=== PATIENT | female | born 2000 | race Caucasian/White ===

== ENCOUNTER 2021-07-04 19:06 | Observation (INO) ==
[2021-07-04] MEDS ORDERED: ONDANSETRON INJ 2 MG/ML 2 ML VIAL IV STA (19:59)
[2021-07-04] MEDS ORDERED: SODIUM CHLORIDE 0.9% 1000ML 1,000 ML IV ONE ×2 (19:59→21:14)
[2021-07-04 20:50] LABS: Hematocrit (blood only) 40.2 % (37-47); Hemoglobin 14.1 g/dL (12.0-16.0); Immature Granulocytes # (auto) 0.02 K/uL (0.00-0.02); Immature Granulocytes % (auto) 0.2 %; Lymphocytes % (auto) 17.3 %; Mean Corpuscular Hemoglobin 30.5 pg (25-34); Mean Corpuscular Hgb Conc 35.1 g/dL (32-36); Mean Platelet Volume 11.2 fL (7.4-10.4); Monocytes # (auto) 0.94 K/uL (0.11-0.59); Monocytes % (auto) 9.6 %; Neutrophils # (auto) 7.15 K/uL (1.4-6.5); Neutrophils % (auto) 72.9 %; Platelet Count 234 K/uL (130-400); RDW Coefficient of Variation 12.1 % (11.5-14.5); RDW Standard Deviation 38.5 fL (36.4-46.3); Red Blood Count 4.62 M/uL (4.2-5.4); White Blood Count 9.81 K/uL (4.8-10.8)
--- NOTE | 2021-07-04 21:01 | Emergency Department Note ---
History of Present Illness General Chief complaint: Vomiting Stated complaint: NAUSEA AND VOMITING FOR 2 DAYS Time Seen by Provider: 07/04/21 19:19 Source: patient Mode of arrival: ambulatory Limitations: no limitations History of Present Illness This patient is a 20-year-old female who presents to the emergency department for evaluation of vomiting. Patient reports that she has been vomiting for the past 35 hours. The patient states that this started after drinking wine. She does have a history of episodes of vomiting which seems to be triggered by drinking alcohol. She has been evaluated for this in the past and was told that she should have an EGD. Patient states she is unable to keep anything down. She does not have any medications at home to take for nausea. She denies any abdominal pain, urinary symptoms or changes in bowel movements. She denies chance of . She denies marijuana use. Home Medications Medication Instructions Recorded Confirmed Type drospirenone 3 mg-ethinyl 1 tab PO DAILY 07/05/21 07/05/21 History estradiol 0.02 mg tablet (Vestura (28)) fluoxetine 40 mg capsule 40 mg PO DAILY 07/05/21 07/05/21 History Allergies Allergy/AdvReac Type Severity Reaction Status Date / Time Non-steroidal AdvReac Hives Uncoded 07/05/21 01:40 anti-inflammatories Past Med/Surg History Medical History Anxiety Nausea and vomiting in adult Family History Father Diverticulitis Grandfather (Paternal) Pancreatic cancer Other No significant family history Social History Smoking Status: Never smoker Second Hand Exposure: No; Hx Alcohol Use: Yes Alcohol type: wine Hx Substance Use: No Preferred Language: Malagasy Communication Ability: Effective E Mail System Administrator Required: No Beliefs That Will Affect Care: None Current Living Situation: Other Current Living Situation Comment: college student current occupational status: student Feels Safe at Home: Yes Assistive Devices: None Review of Systems A total of 10 systems reviewed and were otherwise negative Physical Exam Vital Signs Vital Signs - 24 hr 07/04/21 19:08 07/04/21 20:00 07/04/21 22:00 Temperature 36.3 C L Temperature Source Temporal Artery Scan Pulse Rate 80 Pulse Rate [Right Finger] 54 L 70 Pulse Rhythm [Right Finger] Regular Regular Pulse Strength [Right Finger] Normal Normal Respiratory Rate 18 16 18 Respiratory Effort / Characteristics Non-Labored Spontaneous Non-Labored Non-Labored Respiratory Depth Normal Normal Normal Respiratory Pattern Regular Regular Blood Pressure 137/82 Blood Pressure [Left Radial Artery] 114/65 113/64 Blood Pressure Mean 100 Blood Pressure Mean [Left Radial Artery] 81 80 Blood Pressure Position [Left Radial Artery] Lying Pulse Oximetry 95 97 97 Oxygen Delivery Method Room Air Room Air Sepsis Recent Fever Within 48 Hours No Sepsis New/Unexplained Change in Mental Status No Sepsis Action Taken by Nursing No Action Required 07/04/21 23:37 07/05/21 00:53 Temperature Temperature Source Pulse Rate Pulse Rate [Right Finger] 65 58 L Pulse Rhythm [Right Finger] Regular Regular Pulse Strength [Right Finger] Normal Normal Respiratory Rate 18 18 Respiratory Effort / Characteristics Non-Labored Spontaneous Non-Labored Spontaneous Respiratory Depth Normal Normal Respiratory Pattern Blood Pressure Blood Pressure [Left Radial Artery] 130/83 120/74 Blood Pressure Mean Blood Pressure Mean [Left Radial Artery] 98 89 Blood Pressure Position [Left Radial Artery] Lying Sitting Pulse Oximetry 98 96 Oxygen Delivery Method Room Air Room Air Sepsis Recent Fever Within 48 Hours Sepsis New/Unexplained Change in Mental Status Sepsis Action Taken by Nursing VITALS: Vitals are noted on the nurse's note and reviewed by myself. GENERAL: This is a 20-year-old female, in no acute distress, well-developed well-nourished. SKIN: The skin was without rashes. EARS: External auditory canals clear, tympanic membranes pearly underwood without erythema or effusion bilaterally. EYES: Pupils equal round and reactive to light and accommodation. NOSE: Patent, turbinates without inflammation or discharge. MOUTH: Mucous membranes moist. Tonsils are not enlarged. Pharynx without erythema or exudate. NECK: Supple without nuchal rigidity. No lymphadenopathy. HEART: Regular rate and rhythm without murmurs gallops or rubs. LUNGS: Clear to auscultation bilaterally without wheezes, rales or rhonchi. No retractions or accessory muscle use. ABDOMEN: Positive bowel sounds x 4. Soft, nontender to palpation. NEURO: Patient was alert and oriented to person place and time. Course Administered Medications Discontinued Medications Al Hydrox/Mg Hydrox/Simethicone (Gi Cocktail Ed Use) 1 dose PO ONE ONE Stop: 07/04/21 22:57 Last Admin: 07/04/21 23:23 Dose: 1 dose Documented by: [id number] Diphenhydramine HCl (Diphenhydramine 50 Mg/Ml Vial) 25 mg IV NOW STA Stop: 07/04/21 23:41 Last Admin: 07/04/21 23:46 Dose: 25 mg Documented by: [id number] Fluoxetine HCl (Fluoxetine Hcl 20 Mg Cap) 40 mg PO DAILY NICOLASA Stop: 08/04/21 09:59 Last Admin: 07/05/21 11:15 Dose: 40 mg Documented by: [id number] Sodium Chloride (Nss 1000ml) 1,000 mls @ 999 mls/hr IV .Q1H1M ONE Stop: 07/04/21 20:59 Last Infusion: 07/04/21 22:17 Dose: 0 mls/hr Documented by: [id number] Admin: 07/04/21 20:34 Dose: 999 mls/hr Documented by: [id number] Sodium Chloride (Nss 1000ml) 1,000 mls @ 999 mls/hr IV .Q1H1M ONE Stop: 07/04/21 22:14 Last Infusion: 07/04/21 23:35 Dose: 0 mls/hr Documented by: [id number] Admin: 07/04/21 22:18 Dose: 999 mls/hr Documented by: [id number] Potassium Chloride (K Faisal / Wtr) 10 meq in 100 mls @ 100 mls/hr IV ONE ONE; Protocol Stop: 07/04/21 22:42 Last Infusion: 07/04/21 23:35 Dose: 0 mls/hr Documented by: [id number] Admin: 07/04/21 22:00 Dose: 100 mls/hr Documented by: [id number] Promethazine HCl (Phenergan) 12.5 mg in 50.5 mls @ 202 mls/hr IV NOW STA Stop: 07/04/21 22:03 Last Infusion: 07/04/21 22:17 Dose: 0 mls/hr Documented by: [id number] Admin: 07/04/21 22:00 Dose: 202 mls/hr Documented by: [id number] Famotidine (Pepcid 20mg Iv Push) 20 mg in 5 mls @ 2.5 mls/min IV NOW STA Stop: 07/04/21 22:57 Last Admin: 07/04/21 23:29 Dose: 2.5 mls/min Documented by: [id number] Lorazepam (Ativan) 1 mg in 2 mls @ 2 mls/min IV NOW STA Stop: 07/05/21 01:21 Last Admin: 07/05/21 01:28 Dose: 2 mls/min Documented by: [id number] Potassium Chloride (K Faisal / Wtr) 10 meq in 100 mls @ 100 mls/hr IV Q1H NICOLASA; Protocol Stop: 07/05/21 05:29 Last Infusion: 07/05/21 06:10 Dose: 0 mls/hr Documented by: [id number] Admin: 07/05/21 04:56 Dose: 100 mls/hr Documented by: [id number] Infusion: 07/05/21 04:56 Dose: 0 mls/hr Documented by: [id number] Admin: 07/05/21 03:32 Dose: 100 mls/hr Documented by: [id number] Potassium Chloride (K Faisal / Wtr) 10 meq in 100 mls @ 100 mls/hr IV Q1H NICOLASA; Protocol Stop: 07/05/21 06:59 Last Infusion: 07/05/21 08:32 Dose: 0 mls/hr Documented by: [id number] Admin: 07/05/21 07:31 Dose: 100 mls/hr Documented by: [id number] Infusion: 07/05/21 07:12 Dose: 100 mls/hr Documented by: [id number] Admin: 07/05/21 06:12 Dose: 100 mls/hr Documented by: [id number] Magnesium Sulfate/Dextrose (Magnesium Sulfate / D5w) 1 gm in 100 mls @ 50 mls/hr IV ONE ONE Stop: 07/05/21 07:29 Last Infusion: 07/05/21 08:30 Dose: 0 mls/hr Documented by: [id number] Admin: 07/05/21 06:11 Dose: 50 mls/hr Documented by: [id number] Potassium Chloride/Sodium Chloride (Normal Saline W/20 Meq Kcl) 20 meq in 1,000 mls @ 120 mls/hr IV .Q8H20M NICOLASA Stop: 07/05/21 23:54 Last Infusion: 07/05/21 16:22 Dose: 0 mls/hr Documented by: [id number] Admin: 07/05/21 08:30 Dose: 120 mls/hr Documented by: [id number] Famotidine 20 mg/ Syringe 5 mls @ 2.5 mls/min IV BID NICOLASA Stop: 08/04/21 09:59 Last Admin: 07/05/21 10:40 Dose: 2.5 mls/min Documented by: [id number] Metoclopramide HCl (Metoclopramide Hcl Inj 5 Mg/Ml 2 Ml Vial) 5 mg IV ONE ONE Stop: 07/04/21 23:41 Last Admin: 07/04/21 23:49 Dose: 5 mg Documented by: [id number] Ondansetron HCl (Ondansetron Inj 2 Mg/Ml 2 Ml Vial) 4 mg IV NOW STA Stop: 07/04/21 20:00 Last Admin: 07/04/21 20:34 Dose: 4 mg Documented by: [id number] Medical Decision Making Differential Diagnosis Gastroenteritis, food borne illness, infections, appendicitis, diverticulitis, inflammatory bowel disease, obstruction, GI bleed, biliary pathology, volvulus, as well as other pathologies. Home Medications Current Medication List: was personally reviewed by me Laboratory Data Attestation: I reviewed the patient's lab results. Result diagrams: 07/04/21 20:37 07/05/21 12:51 Lab Results 07/04/21 07/04/21 07/04/21 Range/Units 20:37 20:37 20:37 WBC 9.81 (4.8-10.8) K/uL RBC 4.62 (4.2-5.4) M/uL Hgb 14.1 (12.0-16.0) g/dL Hct 40.2 (37-47) % MCV 87.0 (80-100) fL MCH 30.5 (25-34) pg MCHC 35.1 (32-36) g/dL RDW Std Deviation 38.5 (36.4-46.3) fL RDW Coeff of Laura 12.1 (11.5-14.5) % Plt Count 234 (130-400) K/uL MPV 11.2 H (7.4-10.4) fL Immature Gran % (Auto) 0.2 % Neut % (Auto) 72.9 % Lymph % (Auto) 17.3 % Shackelford % (Auto) 9.6 % Eos % (Auto) 0.0 % Baso % (Auto) 0.0 % Neut # (Auto) 7.15 H (1.4-6.5) K/uL Lymph # (Auto) 1.70 (1.2-3.4) K/uL Shackelford # (Auto) 0.94 H (0.11-0.59) K/uL Eos # (Auto) 0.00 (0-0.5) K/uL Baso # (Auto) 0.00 (0-0.2) K/uL Immature Gran # (Auto) 0.02 (0.00-0.02) K/uL Sodium 133 L (136-145) mmol/L Potassium 2.8 L (3.5-5.1) mmol/L Chloride 88 L (98-107) mmol/L Carbon Dioxide 29 (21-32) mmol/L Anion Gap 16 H (3-11) BUN 12 (6-23) mg/dl Creatinine 0.68 (0.6-1.2) mg/dl Est Cr Clr Drug Dosing 113.0 ml/min Est GFR ( Amer) 144.9 ml/min Est GFR (Non-Af Amer) 125.0 ml/min BUN/Creatinine Ratio 17.6 (10-20) Glucose 103 H (70-99(Fasting)) mg/dl Calcium 10.8 H (8.5-10.1) mg/dl Magnesium (1.7-2.4) mg/dl Total Bilirubin 0.7 (0.2-1.0) mg/dl AST 15 (13-39) U/L ALT 13 (7-52) U/L Alkaline Phosphatase 33 L (34-104) U/L Total Protein 8.0 (6.0-8.3) gm/dl Albumin 5.0 (3.4-5.0) gm/dl Globulin 3.0 (2.5-4.0) gm/dl Albumin/Globulin Ratio 1.7 (0.9-2) HCG, Qual Negative (Negative) Urine Color Urine Appearance (Clear) Urine pH (4.5-7.5) Ur Specific Capron (1.000-1.030) Urine Protein (Negative) Urine Glucose (UA) (Negative) Urine Ketones (Negative) Urine Blood (Negative) Urine Nitrite (Negative) Urine Bilirubin (Negative) Urine Urobilinogen (Negative) Ur Leukocyte Esterase (Negative) Urine WBC (Auto) (0-5) /hpf Urine RBC (Auto) (0-4) /hpf U Hyaline Cast (Auto) (0-5) /lpf U Epithel Cells (Auto) (0-5) /lpf Urine Bacteria (Auto) (Negative) Urine Opiates Screen (Neg) Ur Methadone, Qual (Neg) Urine Barbiturates (Neg) Ur Phencyclidine (PCP) (Neg) U Amphetamin/Meth Scrn (Neg) MDMA (Ecstasy) Screen (Neg) U Benzodiazepines Scrn (Neg) Ur Cocaine Metabolite (Neg) U Marijuana (THC) Screen (Neg) Ethyl Alcohol mg/dL (<10.0) mg/dl SARS-CoV-2, RNA, NAAT (NEGATIVE) 07/04/21 07/04/21 07/05/21 Range/Units 23:32 23:32 01:25 WBC (4.8-10.8) K/uL RBC (4.2-5.4) M/uL Hgb (12.0-16.0) g/dL Hct (37-47) % MCV (80-100) fL MCH (25-34) pg MCHC (32-36) g/dL RDW Std Deviation (36.4-46.3) fL RDW Coeff of Laura (11.5-14.5) % Plt Count (130-400) K/uL MPV (7.4-10.4) fL Immature Gran % (Auto) % Neut % (Auto) % Lymph % (Auto) % Shackelford % (Auto) % Eos % (Auto) % Baso % (Auto) % Neut # (Auto) (1.4-6.5) K/uL Lymph # (Auto) (1.2-3.4) K/uL Shackelford # (Auto) (0.11-0.59) K/uL Eos # (Auto) (0-0.5) K/uL Baso # (Auto) (0-0.2) K/uL Immature Gran # (Auto) (0.00-0.02) K/uL Sodium (136-145) mmol/L Potassium (3.5-5.1) mmol/L Chloride (98-107) mmol/L Carbon Dioxide (21-32) mmol/L Anion Gap (3-11) BUN (6-23) mg/dl Creatinine (0.6-1.2) mg/dl Est Cr Clr Drug Dosing ml/min Est GFR ( Amer) ml/min Est GFR (Non-Af Amer) ml/min BUN/Creatinine Ratio (10-20) Glucose (70-99(Fasting)) mg/dl Calcium (8.5-10.1) mg/dl Magnesium (1.7-2.4) mg/dl Total Bilirubin (0.2-1.0) mg/dl AST (13-39) U/L ALT (7-52) U/L Alkaline Phosphatase (34-104) U/L Total Protein (6.0-8.3) gm/dl Albumin (3.4-5.0) gm/dl Globulin (2.5-4.0) gm/dl Albumin/Globulin Ratio (0.9-2) HCG, Qual (Negative) Urine Color Yellow Urine Appearance Cloudy A (Clear) Urine pH >= 9.0 H (4.5-7.5) Ur Specific Capron 1.018 (1.000-1.030) Urine Protein 1+ H (Negative) Urine Glucose (UA) Negative (Negative) Urine Ketones 2+ H (Negative) Urine Blood 3+ H (Negative) Urine Nitrite Negative (Negative) Urine Bilirubin Negative (Negative) Urine Urobilinogen Negative (Negative) Ur Leukocyte Esterase 2+ H (Negative) Urine WBC (Auto) >30 H (0-5) /hpf Urine RBC (Auto) 5-10 H (0-4) /hpf U Hyaline Cast (Auto) 1-5 (0-5) /lpf U Epithel Cells (Auto) >30 H (0-5) /lpf Urine Bacteria (Auto) 2+ H (Negative) Urine Opiates Screen Neg (Neg) Ur Methadone, Qual Neg (Neg) Urine Barbiturates Neg (Neg) Ur Phencyclidine (PCP) Neg (Neg) U Amphetamin/Meth Scrn Neg (Neg) MDMA (Ecstasy) Screen Neg (Neg) U Benzodiazepines Scrn Neg (Neg) Ur Cocaine Metabolite Neg (Neg) U Marijuana (THC) Screen Neg (Neg) Ethyl Alcohol mg/dL (<10.0) mg/dl SARS-CoV-2, RNA, NAAT NEGATIVE (NEGATIVE) 07/05/21 07/05/21 Range/Units 03:18 05:54 WBC (4.8-10.8) K/uL RBC (4.2-5.4) M/uL Hgb (12.0-16.0) g/dL Hct (37-47) % MCV (80-100) fL MCH (25-34) pg MCHC (32-36) g/dL RDW Std Deviation (36.4-46.3) fL RDW Coeff of Laura (11.5-14.5) % Plt Count (130-400) K/uL MPV (7.4-10.4) fL Immature Gran % (Auto) % Neut % (Auto) % Lymph % (Auto) % Shackelford % (Auto) % Eos % (Auto) % Baso % (Auto) % Neut # (Auto) (1.4-6.5) K/uL Lymph # (Auto) (1.2-3.4) K/uL Shackelford # (Auto) (0.11-0.59) K/uL Eos # (Auto) (0-0.5) K/uL Baso # (Auto) (0-0.2) K/uL Immature Gran # (Auto) (0.00-0.02) K/uL Sodium 130 L (136-145) mmol/L Potassium 3.5 D (3.5-5.1) mmol/L Chloride 102 (98-107) mmol/L Carbon Dioxide 27 (21-32) mmol/L Anion Gap 1 L (3-11) BUN 9 (6-23) mg/dl Creatinine 0.60 (0.6-1.2) mg/dl Est Cr Clr Drug Dosing 128.1 ml/min Est GFR ( Amer) > 150.0 ml/min Est GFR (Non-Af Amer) 130.3 ml/min BUN/Creatinine Ratio 15.0 (10-20) Glucose 100 H (70-99(Fasting)) mg/dl Calcium 8.2 L D (8.5-10.1) mg/dl Magnesium 1.8 (1.7-2.4) mg/dl Total Bilirubin (0.2-1.0) mg/dl AST (13-39) U/L ALT (7-52) U/L Alkaline Phosphatase (34-104) U/L Total Protein (6.0-8.3) gm/dl Albumin (3.4-5.0) gm/dl Globulin (2.5-4.0) gm/dl Albumin/Globulin Ratio (0.9-2) HCG, Qual (Negative) Urine Color Urine Appearance (Clear) Urine pH (4.5-7.5) Ur Specific Capron (1.000-1.030) Urine Protein (Negative) Urine Glucose (UA) (Negative) Urine Ketones (Negative) Urine Blood (Negative) Urine Nitrite (Negative) Urine Bilirubin (Negative) Urine Urobilinogen (Negative) Ur Leukocyte Esterase (Negative) Urine WBC (Auto) (0-5) /hpf Urine RBC (Auto) (0-4) /hpf U Hyaline Cast (Auto) (0-5) /lpf U Epithel Cells (Auto) (0-5) /lpf Urine Bacteria (Auto) (Negative) Urine Opiates Screen (Neg) Ur Methadone, Qual (Neg) Urine Barbiturates (Neg) Ur Phencyclidine (PCP) (Neg) U Amphetamin/Meth Scrn (Neg) MDMA (Ecstasy) Screen (Neg) U Benzodiazepines Scrn (Neg) Ur Cocaine Metabolite (Neg) U Marijuana (THC) Screen (Neg) Ethyl Alcohol mg/dL < 10.0 (<10.0) mg/dl SARS-CoV-2, RNA, NAAT (NEGATIVE) MDM Narrative Continuous playground monitor: Order was placed for continuous playground monitor. Patient was placed on the playground monitor. Patient was noted to be in normal sinus rhythm at an initial rate of 80 bpm. The patient is a 20-year-old female who presents today complaining of vomiting. Patient has a history of similar episodes of vomiting in the past. Labs with no leukocytosis or significant anemia. Patient noted to be hypokalemic with a potassium of 2.8. She has a slight anion gap acidosis, likely secondary to dehydration/vomiting. UDS is negative. Patient medicated with multiple rounds of antiemetics, GI cocktail, Pepcid, fluids and potassium. On reassessment, she continued to vomit. Case was discussed with the [facility] hospitalist service, who agreed to evaluate the patient for further care. Impression & Plan Intractable nausea and vomiting, Hypokalemia Discharge Plan Visit Data Chief Complaint: Vomiting Stated Complaint: NAUSEA AND VOMITING FOR 2 DAYS ED Provider: Jimmie Peña ED Midlevel Provider: Mattie Cox Discharge Problem: Intractable nausea and vomiting, Hypokalemia Patient Disposition: Home - Self-Care Condition: Good COVID Tier Tier I: No follow up necessary. Covid Fact Sheet / ED Discharge Instructions only Tier II: Self-Monitoring Kit, Temp 2x day/pulse ox q8 hrs. Followup call in 24 hrs. Tier III: Self-Monitoring Kit, Temp 2x day/pulse ox q4 hours, with Home Oxygen, Followup call @ 8 & 24hrs. Telehealth Followup in 48hrs ED COVID Discharge Tier: Tier I: No follow up necessary
[2021-07-04 21:07] LABS: Pregnancy Test, Serum Negative (Negative)
[2021-07-04 21:10] LABS: Albumin Globulin Ratio 1.7 (0.9-2); BUN Creatinine Ratio 17.6 (10-20); Bilirubin,Total 0.7 mg/dl (0.2-1.0); Calcium 10.8 mg/dl (8.5-10.1); Est GFR (African American) 144.9 ml/min; Potassium 2.8 mmol/L (3.5-5.1)
[2021-07-04] MEDS ORDERED: POTASSIUM CHLORIDE / WTR 10 MEQ/100 ML PLCT IV ONE (21:43)
[2021-07-04] MEDS ORDERED: PROMETHAZINE 12.5 MG/50.5 ML BAG IV STA (21:49)
[2021-07-04] MEDS ORDERED: FAMOTIDINE 20MG IV PUSH 20 MG/5 ML SYR IV STA (22:56)
[2021-07-04] MEDS ORDERED: GI COCKTAIL ED USE PO ONE (22:56)
[2021-07-04] MEDS ORDERED: METOCLOPRAMIDE HCL INJ 5 MG/ML 2 ML VIAL IV ONE (23:40)
[2021-07-04] MEDS ORDERED: diphenhydrAMINE 50 MG/ML VIAL IV STA (23:40)
[2021-07-04 23:43] LABS: Appearance Urine Cloudy (Clear); Bacteria Urine Automated 2+ (Negative); Bilirubin Urine Negative (Negative); Blood Urine 3+ (Negative); Color Urine Yellow; Epithelial Cell Urine Auto >30 /lpf (0-5); Glucose Urine UA Negative (Negative); Ketones Urine 2+ (Negative); Leukocyte Esterase Urine 2+ (Negative); Nitrite Urine Negative (Negative); Specific Gravity Urine 1.018 (1.000-1.030); Urobilinogen Urine Negative (Negative); WBC Urine Automated >30 /hpf (0-5); pH Urine >= 9.0 (4.5-7.5)
[2021-07-04 23:50] LABS: Protein Urine 1+ (Negative)
[2021-07-05] MEDS ORDERED: LORazepam 1 MG/2 ML VIAL IV STA (01:20)
[2021-07-05 01:51] LABS: Amphetamines+Metham, Urine Neg (Neg); Barbiturates, Urine Neg (Neg); Benzodiazepine, Urine Neg (Neg); Cocaine, Urine Neg (Neg); MDMA (Ecstacy), Urine Neg (Neg); Methadone, Urine Neg (Neg); Opiate, Urine Neg (Neg); Phencyclidine, Urine Neg (Neg)
--- NOTE | 2021-07-05 02:32 | History & Physical Report ---
Date of Service July 05, 2021 Assessment & Plan (1) Intractable nausea and vomiting: Plan: 20 y/o F w/ anxiety and long reported hx of intermittent several times a year episodes of intractable vomiting. Suspicion is highest for cyclic vomiting syndrome with alcohol as main trigger and anxiety as another possible trigger. Labs support electrolyte derangements 2/2 repeated vomiting. ddx: cyclic vomiting syndrome, gastroenteritis, anxiety - lower suspicion for anxiety, UTI-related, cannabanoid, intracranial pathologies - reviewed chart hx; had GI consult in 2019 for similar intractable vomiting. KUB in 2019 read as normal plan: - s/p 1L NSS bolus in ED. - s/p several different antiemetics w/ minor relief, but IV ativan appears to have helped. Nausea milder at time of exam (09/20) as opposed to 1010 at ED arrival. - PO zofran upon discharge. - repleted w/ 40 meq of IV potassium and 10 meq of IV MgSO4. - ordered KUB: per my interpretation: normal gas pattern w/o acute abnormality. Lower suspicion for SBO or infectious gastritis. Borderline WBC noted, but defer GI Biofire at this time. No diarrhea. (2) Hypokalemia: Plan: 2.8 at admission likely 2/2 vomiting. Improved to 3.5 s/p 4 bags of 10 meq IV KCl. 1 additional bag KCl ordered plus will infuse 2 bags of NSS w/ added KCl. (3) Hyponatremia: Plan: 133->130. Will infuse 150mL/hr NSS. Recheck BMP at 1PM. Initially planned to discharge from ED (hospitalist consult), but w/ worsening hyponatremia, will manage as inpatient. (4) Anxiety: Plan: Continue home regimen. Symptoms currently minimal/controlled. Plan: NPO. NSS 150/hr w/ 20meq KCl x 2 bags. SCDs Full code Med tele History of Present Illness Chief Complaint: intractable nausea/vomiting Primary Care Provider: [facility] 20 y/o F who presents w/ intractable nausea/vomiting since Edward AM after drinking 2 glasses of wine the evening prior. Has happened to her in past a few times after drinking alcohol, but not every time. No hx migraines. ER meds helped some. 4/10 severity down from 1010. Has had this type of vomiting since 7-, triggered by anxiety. Denies other triggers such as foods. Anxiety hasn't bothered her in past week. Noticed some mild blood streak in her vomit. States probably vomited 70 times. No one around her w/ similar symptoms. Never hx of marijuana or tobacco. Denies illicit substances. No other etoh this week. No new foods or meds. BMs normal. No bloody stool. Drinks etoh only socially. States in past 12 months, has had 10 episodes of this type of vomiting. Went to urgent care 12/2021 for similar intractable vomiting. Allergies Allergy/AdvReac Type Severity Reaction Status Date / Time Non-steroidal AdvReac Hives Uncoded 07/05/21 01:40 anti-inflammatories Home Medications Medication Instructions Recorded Confirmed Type drospirenone 3 mg-ethinyl 1 tab PO DAILY 07/05/21 07/05/21 History estradiol 0.02 mg tablet (Vestura (28)) fluoxetine 40 mg capsule 40 mg PO DAILY 07/05/21 07/05/21 History Past Med/Surg History Medical History Anxiety Nausea and vomiting in adult Family History Father Diverticulitis Grandfather (Paternal) Pancreatic cancer Other No significant family history Social History Smoking Status: Never smoker Second Hand Exposure: No; Hx Alcohol Use: Yes Alcohol type: wine Hx Substance Use: No Preferred Language: Chinese Communication Ability: Effective Coil Strapper Required: No Beliefs That Will Affect Care: None Current Living Situation: Other Current Living Situation Comment: college student current occupational status: student Feels Safe at Home: Yes Assistive Devices: None Review of Systems Review of Systems: All systems reviewed & are unremarkable except as noted in HPI & below Constitutional: Denies fever, chills, weight change Eyes: Denies blurry vision, vision changes ENT: Denies sore throat Cardiovascular: Denies chest pain, palpitations Respiratory: Denies shortness of breath Gastrointestinal: Denies abdominal pain, nausea, vomiting, constipation, diar amie Genitourinary: Denies urinary symptoms including dysuria Musculoskeletal: Denies weakness, muscle aches/pain, joint aches/pain Neurological: Denies headache, numbness, tingling, focal weakness. Had some paresthesias in hands and feet, not new for her. Physical Exam Physical Exam: General: Grossly A&O. NAD. Cooperative. Sleeping comfortably. HEENT: Atraumatic, normocephalic. EOMI. PERRL. Pulm: CTAB. -wheezes, -rales, -rhonchi. No respiratory distress. Cardiac: RRR, -mrg. Radial pulses intact and symmetrical. Abdominal: Nontender, nondistended, soft. Integ: Warm, dry, intact. Results & Data Results & Data ([facility]) Vital Signs (Past 12 Hours) Vital Signs Temp Pulse Pulse Resp BP BP Pulse Ox 07/05/21 00:53 58 L 18 120/74 96 07/04/21 23:37 65 18 130/83 98 07/04/21 22:00 70 18 113/64 97 07/04/21 20:00 54 L 16 114/65 97 07/04/21 19:08 36.3 C L 80 18 137/82 95 Laboratory Results wbc 9.81. Not anemic. Na 133, K 2.8, CL 88. AG 16. hcg neg. urine cloudy, basic, 2+ ketones, 3+ blood, 2+ LE, >30 wbc, 2+ katie 07/04/21 20:37 07/04/21 20:37 Diagnostic Findings KUB: Per my interpretation: Normal abdominal gas pattern. ECG Additional Comments: No ecg performed. Code Status & VTE Plan Code Status full VTE Prophylaxis Plan VTE Prophylaxis will be ordered: Yes Supervising Physician Co-Signing Physician Notes Attending addendum: I have physically seen this patient, have supervised the medical residents activities, and agree with the H&P unless as otherwise noted. Assessment and Plan: Intractable nausea vomiting- UDS negative History in the past with GI work-up in 2019 KUB negative today Status post 1 L normal saline bolus in ED No clear etiology at that time, and unclear at this time as well. Hypokalemia- Given K riders, with improvement from 2.8-3.5 However, drop in sodium of 133-130 and still showing signs of dehydration Initial plan was to discharge patient home, however, patient should be admitted and optimized fluid balance Resident Activity Tracking Resident Involvement: Resident Care Provided Care Provided: Adult Hospital Medicine
[2021-07-05] MEDS: POTASSIUM CHLORIDE / WTR 10 MEQ/100 ML PLCT IV SCH ×5 (03:32→07:31)
--- NOTE | 2021-07-05 03:41 | Hospitalist Consultation ---
Date of Consultation July 05, 2021 Assessment & Plan (1) Intractable nausea and vomitin20 y/o F w/ anxiety and long reported hx of intermittent several times a year episodes of intractable vomiting. Suspicion is highest for cyclic vomiting syndrome with alcohol as main trigger and anxiety as another possible trigger. Labs support electrolyte derangements 2/2 repeated vomiting. ddx: cyclic vomiting syndrome, gastroenteritis, anxiety - lower suspicion for anxiety, UTI-related, cannabanoid, intracranial pathologies - reviewed chart hx; had GI consult in 2019 for similar intractable vomiting. KUB in 2019 read as normal plan: - s/p 1L NSS bolus in ED. - s/p several different antiemetics w/ minor relief, but IV ativan appears to have helped. Nausea milder at time of exam (09/20) as opposed to 1010 at ED arrival. - PO zofran upon discharge. - repleted w/ 40 meq of IV potassium and 10 meq of IV MgSO4. - ordered KUB: per my interpretation: normal gas pattern w/o acute abnormality. (2) Anxiety: Continue home regimen. Symptoms currently minimal/controlled. (3) Hypokalemia: 2.8 at admission likely 2/2 vomiting. Will encourage PO supplement 10meq daily x 1 week and have PCP recheck in 1 week. Repeat labs: History of Present Illness Reason for Consultation: intractable nasuea and vomiting Requesting Physician: Jennifer Cox PA-C History of Present Illness 20 y/o F who presents w/ intractable nausea/vomiting since Tuesday AM after drinking 2 glasses of wine the evening prior. Has happened to her in past a few times after drinking alcohol, but not every time. No hx migraines. ER meds helped some. 4/10 severity down from 10/10. Has had this type of vomiting since 01-19, triggered by anxiety. Denies other triggers such as foods. Anxiety hasn't bothered her in past week. Noticed some mild blood streak in her vomit. States probably vomited 70 times. No one around her w/ similar symptoms. Never hx of marijuana or tobacco. Denies illicit substances. No other etoh this week. No new foods or meds. BMs normal. No bloody stool. Drinks etoh only socially. States in past 12 months, has had 10 episodes of this type of vomiting. Went to urgent care 12/2021 for similar intractable vomiting. Allergies Allergy/AdvReac Type Severity Reaction Status Date / Time Non-steroidal AdvReac Hives Uncoded 07/05/21 01:40 anti-inflammatories Home Medications Medication Instructions Recorded Confirmed Type drospirenone 3 mg-ethinyl 1 tab PO DAILY 07/05/21 07/05/21 History estradiol 0.02 mg tablet (Vestura (28)) fluoxetine 40 mg capsule 40 mg PO DAILY 07/05/21 07/05/21 History promethazine 12.5 mg rectal 12.5 mg TX Q6 PRN 07/05/21 07/05/21 History suppository Patient History Medical History Anxiety Nausea and vomiting in adult Family History Father Diverticulitis Grandfather (Paternal) Pancreatic cancer Other No significant family history Social History Smoking Status: Never smoker Hx Alcohol Use: No Hx Substance Use: No current occupational status: student Feels Safe at Home: Yes Review of Systems Review of Systems: Constitutional: Denies fever, chills, weight change Eyes: Denies blurry vision, vision changes ENT: Denies sore throat Cardiovascular: Denies chest pain, palpitations Respiratory: Denies shortness of breath Gastrointestinal: Denies abdominal pain, nausea, vomiting, constipation, diarrhea Genitourinary: Denies urinary symptoms including dysuria Musculoskeletal: Denies weakness, muscle aches/pain, joint aches/pain Neurological: Denies headache, numbness, tingling, focal weakness. Had some paresthesias in hands and feet, not new for her. Physical Exam Physical Exam: General: Grossly A&O. NAD. Cooperative. Sleeping comfortably. HEENT: Atraumatic, normocephalic. EOMI. PERRL. Pulm: CTAB. -wheezes, -rales, -rhonchi. No respiratory distress. Cardiac: RRR, -mrg. Radial pulses intact and symmetrical. Abdominal: Nontender, nondistended, soft. Integ: Warm, dry, intact. Results & Data Results & Data ([facility]) Vital Signs (Past 12 Hours) Vital Signs Temp Pulse Pulse Resp BP BP Pulse Ox 07/05/21 03:16 60 18 112/68 96 07/05/21 00:53 58 L 18 120/74 96 07/04/21 23:37 65 18 130/83 98 07/04/21 22:00 70 18 113/64 97 07/04/21 20:00 54 L 16 114/65 97 07/04/21 19:08 36.3 C L 80 18 137/82 95 Laboratory Results wbc 9.81. Not anemic. Na 133, K 2.8, CL 88. AG 16. hcg neg. urine cloudy, basic, 2+ ketones, 3+ blood, 2+ LE, >30 wbc, 2+ bact 07/04/21 20:37 07/04/21 20:37 Cardiac Enzymes 07/04/21 Range/Units 20:37 AST 15 (13-39) U/L CBC 07/04/21 Range/Units 20:37 WBC 9.81 (4.8-10.8) K/uL RBC 4.62 (4.2-5.4) M/uL Hgb 14.1 (12.0-16.0) g/dL Hct 40.2 (37-47) % Plt Count 234 (130-400) K/uL Neut # (Auto) 7.15 H (1.4-6.5) K/uL Lymph # (Auto) 1.70 (1.2-3.4) K/uL [place] # (Auto) 0.94 H (0.11-0.59) K/uL Eos # (Auto) 0.00 (0-0.5) K/uL Baso # (Auto) 0.00 (0-0.2) K/uL Comprehensive Metabolic Panel 07/04/21 Range/Units 20:37 Sodium 133 L (136-145) mmol/L Potassium 2.8 L (3.5-5.1) mmol/L Chloride 88 L (98-107) mmol/L Carbon Dioxide 29 (21-32) mmol/L BUN 12 (6-23) mg/dl Creatinine 0.68 (0.6-1.2) mg/dl Glucose 103 H (70-99(Fasting)) mg/dl Calcium 10.8 H (8.5-10.1) mg/dl AST 15 (13-39) U/L ALT 13 (7-52) U/L Alkaline Phosphatase 33 L (34-104) U/L Total Protein 8.0 (6.0-8.3) gm/dl Albumin 5.0 (3.4-5.0) gm/dl Intake and Output 07/04/21 07/04/21 07/05/21 14:59 22:59 06:59 Intake Total 1050.5 / 2150.5 1100 / 2150.5 Balance 1050.5 / 2150.5 1100 / 2150.5 Intake: IV 1050.5 / 2150.5 1100 / 2150.5 Potassium Chloride / Wtr 10 meq 100 / 100 In 100 ml @ 100 mls/hr IV ONE ONE Rx#:[id number] Promethazine 12.5 mg In 50.5 ml 50.5 / 50.5 @ 202 mls/hr IV NOW STA Rx#: [id number] Sodium Chloride 0.9% 1000ML 1, 1000 / 2000 1000 / 2000 000 ml @ 999 mls/hr IV .Q1H1M ONE Rx#:[id number] Other: Weight 56.3 kg Weight Measurement Method Chair Scale Patient Weight 07/05/21 06:59 Weight 56.3 kg Diagnostic Findings No imaging performed this visit. ECG Additional Comments: No ecg performed this visit.
[2021-07-05] MEDS ORDERED: MAGNESIUM SULFATE / D5W 1 GM/100 ML BAG IV ONE (05:30)
[2021-07-05 06:44] LABS: Anion Gap 1 (3-11); Blood Urea Nitrogen 9 mg/dl (6-23); Calcium 8.2 mg/dl (8.5-10.1); Carbon Dioxide 27 mmol/L (21-32); Chloride 102 mmol/L (98-107); Creatinine Clr Calc Pharmacy 128.1 ml/min; Est GFR (African American) > 150.0 ml/min; Est GFR (Non-African American) 130.3 ml/min; Glucose 100 mg/dl (70-99(Fasting)); Magnesium 1.8 mg/dl (1.7-2.4); Potassium 3.5 mmol/L (3.5-5.1); Sodium 130 mmol/L (136-145)
[2021-07-05] MEDS ORDERED: NSS + 20MEQ KCL 20 MEQ/1,000 ML BAG IV SCH (07:15)
[2021-07-05] MEDS ORDERED: ONDANSETRON INJ 2 MG/ML 2 ML VIAL IV PRN (09:23)
[2021-07-05] MEDS ORDERED: FAMOTIDINE 20 MG in SYRINGE 3 ML IV SCH (10:00)
[2021-07-05] MEDS ORDERED: FLUoxetine HCL 20 MG CAP PO SCH (10:00)
--- NOTE | 2021-07-05 10:17 | XRay Report ---
XR KUB/Abdomen 1 view CLINICAL HISTORY: intractable nausea/vomiting TECHNIQUE: 1 view of the abdomen was obtained. Comparison: Comparison is made to chest and abdomen radiographs 09/13/2018 FINDINGS: Lung bases are unremarkable. The osseous structures are grossly unremarkable. The bowel gas pattern i s nonobstructive. A moderate amount of stool is noted within the large bowel. IMPRESSION: Nonobstructive bowel gas pattern. ACT 112: Negative or not required by law. Electronically signed by: Rubén Rose M.D. 07/05/2021 10:16 AM
[2021-07-05 13:18] LABS: BUN Creatinine Ratio 11.9 (10-20); Calcium 8.7 mg/dl (8.5-10.1); Creatinine Clr Calc Pharmacy 114.7 ml/min; Est GFR (African American) 145.6 ml/min; Est GFR (Non-African American) 125.7 ml/min; Potassium 3.6 mmol/L (3.5-5.1)
--- NOTE | 2021-07-05 15:13 | Hospitalist Progress Note ---
Date of Service July 05, 2021 Assessment & Plan (1) Intractable nausea and vomiting: Plan: Patient states she occasionally gets nausea and vomiting when she consumes alcohol. Denies use of marijuana However stated nausea and vomiting is better Continue Zofran as needed Continue IV normal saline 100 cc/h (2) Anxiety: Plan: Continue home medications (3) Hypokalemia: Plan: Replace (4) Hyponatremia: Plan: Replaced with normal saline Recheck BMP Admission and Anticipated Discharge Date Admission Date: July 05, 2021 Subjective patient seen and examined, says her nausea and vomiting much improved Review of Systems Review of Systems: All systems reviewed are negative, apart from the ones contained in the history. Physical Exam Physical Exam: The patient is awake, alert and oriented 3, well developed and well nourished, normocephalic and atraumatic, lying in bed and in no acute distress. HEENT--PERRL, EOMI, mucous membranes and oropharynx mildly dry Neck--supple. No JVD. No bruits. Thyroid normal, trachea midline, no adenopathy. Heart--normal S1 and S2. No murmurs, rubs or gallops. Lungs--clear bilaterally, no respiratory distress, no accessory muscle use. Abdomen--normal bowel sounds and soft. Mild epigastric and left sided abdominal pain Extremities--no cyanosis or clubbing. No edema. Dermatologic--normal skin turgor, normal color, no abnormal lymph nodes, no rash. Neurologic--cranial nerves II through XII grossly intact. Rheumatologic--normal range of motion. Psychiatric--normal affect. Results & Data Results & Data ([facility]) Vital Signs (Past 12 Hours) Vital Signs Temp Pulse Resp BP Pulse Ox 07/05/21 12:00 98.2 F 55 L 16 109/67 94 07/05/21 09:55 98.4 F 54 L 17 107/72 97 07/05/21 08:00 56 L 17 122/51 L 95 07/05/21 06:17 60 18 111/70 98 07/05/21 05:01 61 18 112/64 99 07/05/21 03:16 60 18 112/68 96 PG Care Time/CCT Total # of Minutes Spent Total Time Spent with Patient: Total time spent is greater than 50% in coordination of care (as documented) at patient's floor/unit and/or counseling patient: Coding Level of Care Code 19377 Subseq Obs Care Lvl 2 Diagnoses Intractable nausea and vomiting R11.2 Anxiety F41.9 Hypokalemia E87.6 Hyponatremia E87.1 Time Spent (min) 35
--- NOTE | 2021-07-05 16:06 | Discharge Summary ---
Date of Service July 05, 2021 Admission HPI Per Admitting Provider 20 y/o F who presents w/ intractable nausea/vomiting since Edward AM after drinking 2 glasses of wine the evening prior. Has happened to her in past a few times after drinking alcohol, but not every time. No hx migraines. ER meds helped some. 4/10 severity down from 1010. Has had this type of vomiting since 8-9, triggered by anxiety. Denies other triggers such as foods. Anxiety hasn't bothered her in past week. Noticed some mild blood streak in her vomit. States probably vomited 70 times. No one around her w/ similar symptoms. Never hx of marijuana or tobacco. Denies illicit substances. No other etoh this week. No new foods or meds. BMs normal. No bloody stool. Drinks etoh only socially. States in past 12 months, has had 10 episodes of this type of vomiting. Went to urgent care 12/2021 for similar intractable vomiting. Principal Diagnosis gastritis Discharge Exam The patient is awake, alert and oriented 3, well developed and well nourished, normocephalic and atraumatic, lying in bed and in no acute distress. HEENT--PERRL, EOMI, mucous membranes and oropharynx mildly dry Neck--supple. No JVD. No bruits. Thyroid normal, trachea midline, no adenopathy. Heart--normal S1 and S2. No murmurs, rubs or gallops. Lungs--clear bilaterally, no respiratory distress, no accessory muscle use. Abdomen--normal bowel sounds and soft. Mild epigastric and left sided abdominal pain Extremities--no cyanosis or clubbing. No edema. Dermatologic--normal skin turgor, normal color, no abnormal lymph nodes, no rash. Neurologic--cranial nerves II through XII grossly intact. Rheumatologic--normal range of motion. Psychiatric--normal affect. Discharge Data Allergies Allergy/AdvReac Type Severity Reaction Status Date / Time Non-steroidal AdvReac Hives Uncoded 07/05/21 01:40 anti-inflammatories Consultations 07/05/21 01:21 ED Decision to Admit Stat Hospital Course (1) Intractable nausea and vomiting: Patient states she occasionally gets nausea and vomiting when she consumes alcohol. Denies use of marijuana However stated nausea and vomiting is better Continue Zofran as needed Continue IV normal saline 100 cc/h (2) Anxiety: Continue home medications (3) Hypokalemia: Replace (4) Hyponatremia: Replaced with normal saline Recheck BMP Total Time Total Time Spent Total Time Spent (In Minutes): 35 Discharge Plan Discharge Items Patient Disposition: Home - Home Health Services Reason For Visit: INTRACTABLE NAUSEA AND VOMITING Discharge Diagnosis: gastritis Condition on Discharge: Good Activity: Resume your previous activity Non-emergency contact: Primary Care Provider Call non-emergency contact if: you have any medication questions Follow-up/Referrals: [facility] [Primary Care Provider] - Diet: Regular Addtl Attending Provider Instructions: please follow up with your PCP Pending Studies at Discharge: No Stand-Alone Forms: My Spreaker, Smoking Cessation Medications and DC Order Prescriptions: Continued fluoxetine 40 mg capsule 40 mg PO DAILY RF: 0 drospirenone-ethinyl estradiol [Vestura (28)] 3-0.02 mg tablet 1 tab PO DAILY RF: 0 Discontinued promethazine 12.5 mg suppository 12.5 mg PA Q6 PRN (Reason: Nausea And Vomiting) RF: 0 Discharge Orders: Discharge Order (Routine); Ordered 07/05/21 Ordered By: Maryanne Mcnulty Admission Data Admit Date/Time: 07/05/21 07:14 Attending Provider: Bobby Robison Admit Provider: Bobby Robison Primary Care Provider: [facility] Other Providers: Bobby Robison Coding Level of Care Code D/C DAY MANAGEMENT >30 MINS Diagnoses Intractable nausea and vomiting R11.2 Anxiety F41.9 Hypokalemia E87.6 Hyponatremia E87.1 Time Spent (min) 35
--- NOTE | 2021-07-05 22:52 | Billing Data ---
Date of Service July 05, 2021 Coding Level of Care Code INT OBSERVATION CARE 70M LVL 3
== END 2021-07-05 17:00 | disposition home health service (06) ==
LOC: EDINP 19:06 → ED 19:06 → EDINP 07-05 17:00

== ENCOUNTER 2021-07-19 13:04 | Observation (INO) ==
[2021-07-19] MEDS ORDERED: LORazepam 1 MG/2 ML VIAL IV STA (13:19)
[2021-07-19] MEDS ORDERED: SODIUM CHLORIDE 0.9% 1000ML 1,000 ML IV ONE ×2 (13:19)
[2021-07-19] MEDS ORDERED: diphenhydrAMINE 50 MG/ML VIAL IV STA (13:19)
[2021-07-19] MEDS ORDERED: PROCHLORPERAZINE 1 ML IV ONE (13:19)
[2021-07-19] MEDS ORDERED: ACETAMINOPHEN 1,000 MG/100 ML VIAL IV STA (13:19)
[2021-07-19 13:40] LABS: Hematocrit (blood only) 37.3 % (37-47); Hemoglobin 13.3 g/dL (12.0-16.0); Immature Granulocytes # (auto) 0.01 K/uL (0.00-0.02); Immature Granulocytes % (auto) 0.1 %; Lymphocytes # (auto) 0.78 K/uL (1.2-3.4); Lymphocytes % (auto) 9.5 %; Mean Corpuscular Hemoglobin 30.5 pg (25-34); Mean Corpuscular Hgb Conc 35.7 g/dL (32-36); Mean Corpuscular Volume 85.6 fL (80-100); Mean Platelet Volume 10.6 fL (7.4-10.4); Monocytes # (auto) 0.32 K/uL (0.11-0.59); Monocytes % (auto) 3.9 %; Neutrophils # (auto) 7.14 K/uL (1.4-6.5); Neutrophils % (auto) 86.5 %; Platelet Count 249 K/uL (130-400); RDW Coefficient of Variation 11.6 % (11.5-14.5); RDW Standard Deviation 36.2 fL (36.4-46.3); Red Blood Count 4.36 M/uL (4.2-5.4); White Blood Count 8.25 K/uL (4.8-10.8)
--- NOTE | 2021-07-19 13:40 | Emergency Department Note ---
Impression & Plan Intractable nausea and vomiting ED Provider Note Name: BEN CLIFTON Age: 20 Sex: F Arrives Via: Walk-In Informant: Patient ED Provider: Arnulfo Mckeon MD Chief Complaint: Nausea and vomiting Impression: As per impressions above Medical Decision Makin-year-old female with a history of anxiety/depression on Prozac who has periodic episodes of intractable nausea and vomiting most recently admitted about 3 weeks ago for similar. She notes over the last 6 days cyclic nausea and vomiting which improves when she comes to the ER for medications, feels well for roughly a day before symptoms return. On arriving she is actively dry heaving holding a large bag of emesis. Patient appears quite uncomfortable and was given medications with improvement in symptoms. After discussion with patient given the fact this is now her third visit and she is continued having nausea and vomiting plan for hospitalist evaluation. Patient is not septic and labs ar e unremarkable. She has a nonsurgical abdomen without peritonitis. Prior Medical Record and Triage/Nursing Notes reviewed by Me Additional history obtained from chart Differentials:Gastroenteritis, food borne illness, infections, appendicitis, diverticulitis, inflammatory bowel disease, obstruction, GI bleed, biliary pathology, volvulus, as well as other pathologies. Vital Signs: reviewed and remarkable for no significant abnormalities Interventions: Normal saline bolus, Compazine 5 mg IV, Ativan 1 mg IV, Benadryl 50 mg IV Labs:Reviewed and remarkable for no significant abnormalities Consults:Dr. Halina ALEXANDER Hospitalist Plan: Disposition:Hospitalization. Condition: Good History of Present Illness:20-year-old female arrives for evaluation of persistent emesis. Patient notes a long history of nausea vomiting issues which should be moderately under control until recently. Mid June she had an episode of nausea vomiting requiring hospitalization. Starting about 5 days ago she had a return of the nausea and vomiting resulting in 2 ER visits. She notes after ER visit on Tuesday she was actually feeling much better yesterday but then this morning awoke around 3 AM with severe nausea and vomiting. She notes she has been dry heaving for the last 12 hours or so. She gets lightheaded with standing. Nothing makes better or worse. She is unable to keep down any nausea or medic occasions due to persistent emesis. Patient notes some abdominal cramping from vomiting over and over again. She denies any fevers, chills, chest pain, shortness of breath, urinary/bowel symptoms, leg swelling, rashes, headache, sore throat or other symptoms. Nothing makes better or worse. She d enies any falls, trauma, injuries. She is adamant marijuana use. She does have a history of this getting worse with alcohol use but she is adamant she did not have any recent alcohol either. ROS: See above HPI for pertinent positives & negatives. A total of 10 systems re viewed and were otherwise negative. Past Medical History:Intractable nausea and vomiting, anxiety, hyponatremia Past Surgical History:None Family History:States family is healthy Social History:[employer] student, rare alcohol use, no drugs, no marijuana, no tobacco use Home Medications:Prozac Allergies:NSAIDs Vitals:Blood Pressure: 141/99, Pulse 77, RR 16, T 36.0C, O2 94% on RA Physical Exam: GENERAL: Patient is severely uncomfortable appearing and in moderate distress. Dry heaving and holding a bag of clear liquid emesis EYES: No scleral icterus, unremarkable pupils. ENT: Mucous membranes dry, no nasal congestion. NECK: No masses appreciated, nomeningismus, trachea is midline. RESPIRATORY: No dyspnea. Clear to auscultation and equal bilaterally. No wheeze, no rhonchi. CARDIOVASCULAR: Regular rate and rhythm.No murmurs, rubs, gallops appreciated. GASTROINTESTINAL: Vague TTP entire abdomen, but abdomen soft, no peritonitis.Bowel sounds positive.No masses appreciated. BACK: No midline tenderness, no CVA tenderness EXTREMITIES: Normal motion all extremities, no cyanosis, no edema. NEUROLOGIC: Alert and oriented, no acute motor or sensory deficits, no focal wea kness, cranial nerves grossly intact. SKIN: No rash, no jaundice, no diaphoresis. PSYCH: Appropriate GCS: 15 ED Course: Times/Reassessments: Improving looks much better but given recurrent episodes and this is comfortable with hospitalization plan. 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 Beliefs That Will Affect Care: None Current Living Situation: Other Current Living Situation Comment: college student current occupational status: student Feels Safe at Home: Yes Assistive Devices: None Allergies Allergies Allergy/AdvReac Type Severity Reaction Status Date / Time acetaminophen Allergy Intermediate Hives Verified 07/19/21 14:39 NSAIDS (Non-Steroidal Allergy Intermediate Hives Verified 07/19/21 14:39 Anti-Inflamma Home Meds Home Medications Medication Instructions Recorded Confirmed drospirenone 3 mg-ethinyl 1 tab PO HS 07/05/21 07/19/21 estradiol 0.02 mg tablet (Vestura (28)) fluoxetine 40 mg capsule 40 mg PO HS 07/05/21 07/19/21 calcium carbonate 200 mg calcium 200 mg PO BID PRN 07/17/21 07/19/21 (500 mg) chewable tablet (Tums) lorazepam 0.5 mg tablet 0.5 mg PO Q8H PRN 07/17/21 07/19/21 Previous Rx's Medication Instructions Recorded ondansetron 4 mg disintegrating 4 mg PO Q12H PRN 3 Days #9 tab 07/17/21 tablet prochlorperazine maleate 10 mg 10 mg PO Q8H PRN 5 Days #15 tab 07/17/21 tablet (Compazine) Results & Data (ED) Vital Signs Vital Signs - 24 hr 07/19/21 13:07 07/19/21 14:57 Temperature 36.0 C L Temperature Source Temporal Artery Scan Pulse Rate 77 Pulse Rate [Left] 72 Pulse Rhythm [Left] Regular Pulse Strength [Left] Normal Respiratory Rate 16 16 Respiratory Effort / Characteristics Non-Labored Non-Labored Spontaneous Respiratory Depth Normal Normal Respiratory Pattern Regular Regular Blood Pressure 141/99 H Blood Pressure [Left Arm] 114/71 Blood Pressure Mean 113 Blood Pressure Mean [Left Arm] 85 Blood Pressure Position [Left Arm] Lying Pulse Oximetry 94 98 Oxygen Delivery Method Room Air Room Air Sepsis Recent Fever Within 48 Hours No Sepsis New/Unexplained Change in Mental Status No Sepsis Action Taken by Nursing No Action Required Laboratory Data Result diagrams: 07/19/21 13:30 07/19/21 13:30 Lab Results 07/19/21 07/19/21 07/19/21 Range/Units 13:30 13:30 13:30 WBC 8.25 (4.8-10.8) K/uL RBC 4.36 (4.2-5.4) M/uL Hgb 13.3 (12.0-16.0) g/dL Hct 37.3 (37-47) % MCV 85.6 (80-100) fL MCH 30.5 (25-34) pg MCHC 35.7 (32-36) g/dL RDW Std Deviation 36.2 L (36.4-46.3) fL RDW Coeff of Laura 11.6 (11.5-14.5) % Plt Count 249 (130-400) K/uL MPV 10.6 H (7.4-10.4) fL Immature Gran % (Auto) 0.1 % Neut % (Auto) 86.5 % Lymph % (Auto) 9.5 % [place] % (Auto) 3.9 % Eos % (Auto) 0.0 % Baso % (Auto) 0.0 % Neut # (Auto) 7.14 H (1.4-6.5) K/uL Lymph # (Auto) 0.78 L (1.2-3.4) K/uL [place] # (Auto) 0.32 (0.11-0.59) K/uL Eos # (Auto) 0.00 (0-0.5) K/uL Baso # (Auto) 0.00 (0-0.2) K/uL Immature Gran # (Auto) 0.01 (0.00-0.02) K/uL ESR 13 (0-20) mm/hr Sodium 132 L (136-145) mmol/L Potassium 3.5 (3.5-5.1) mmol/L Chloride 96 L (98-107) mmol/L Carbon Dioxide 25 (21-32) mmol/L Anion Gap 11 (3-11) BUN 5 L (6-23) mg/dl Creatinine 0.56 L (0.6-1.2) mg/dl Est Cr Clr Drug Dosing 137.2 ml/min Est GFR ( Amer) > 150.0 ml/min Est GFR (Non-Af Amer) 133.3 ml/min BUN/Creatinine Ratio 8.9 L (10-20) Glucose 119 H (70-99(Fasting)) mg/dl Calcium 9.6 (8.5-10.1) mg/dl Magnesium 1.7 (1.7-2.4) mg/dl Total Bilirubin 0.6 (0.2-1.0) mg/dl Direct Bilirubin 0.1 (0-0.2) mg/dl AST 14 (13-39) U/L ALT 18 (7-52) U/L Alkaline Phosphatase 33 L (34-104) U/L C-Reactive Protein < 0.50 (0-0.5) mg/dl Total Protein 7.3 (6.0-8.3) gm/dl Albumin 4.7 (3.4-5.0) gm/dl Amylase 40 (25-115) U/L Lipase 9 L (11-82) U/L Urine Color Urine Appearance (Clear) Urine pH (4.5-7.5) Ur Specific [place] (1.000-1.030) Urine Protein (Negative) Urine Glucose (UA) (Negative) Urine Ketones (Negative) Urine Blood (Negative) Urine Nitrite (Negative) Urine Bilirubin (Negative) Urine Urobilinogen (Negative) Ur Leukocyte Esterase (Negative) Urine WBC (Auto) (0-5) /hpf Urine RBC (Auto) (0-4) /hpf U Hyaline Cast (Auto) (0-5) /lpf U Epithel Cells (Auto) (0-5) /lpf Urine Bacteria (Auto) (Negative) Urine Test (Negative) Urine Opiates Screen (Neg) Ur Methadone, Qual (Neg) Urine Barbiturates (Neg) Ur Phencyclidine (PCP) (Neg) U Amphetamin/Meth Scrn (Neg) MDMA (Ecstasy) Screen (Neg) U Benzodiazepines Scrn (Neg) Ur Cocaine Metabolite (Neg) U Marijuana (THC) Screen (Neg) SARS-CoV-2, RNA, NAAT (NEGATIVE) 07/19/21 07/19/21 07/19/21 Range/Units 14:46 14:50 14:50 WBC (4.8-10.8) K/uL RBC (4.2-5.4) M/uL Hgb (12.0-16.0) g/dL Hct (37-47) % MCV (80-100) fL MCH (25-34) pg MCHC (32-36) g/dL RDW Std Deviation (36.4-46.3) fL RDW Coeff of Laura (11.5-14.5) % Plt Count (130-400) K/uL MPV (7.4-10.4) fL Immature Gran % (Auto) % Neut % (Auto) % Lymph % (Auto) % [place] % (Auto) % Eos % (Auto) % Baso % (Auto) % Neut # (Auto) (1.4-6.5) K/uL Lymph # (Auto) (1.2-3.4) K/uL [place] # (Auto) (0.11-0.59) K/uL Eos # (Auto) (0-0.5) K/uL Baso # (Auto) (0-0.2) K/uL Immature Gran # (Auto) (0.00-0.02) K/uL ESR (0-20) mm/hr Sodium (136-145) mmol/L Potassium (3.5-5.1) mmol/L Chloride (98-107) mmol/L Carbon Dioxide (21-32) mmol/L Anion Gap (3-11) BUN (6-23) mg/dl Creatinine (0.6-1.2) mg/dl Est Cr Clr Drug Dosing ml/min Est GFR ( Amer) ml/min Est GFR (Non-Af Amer) ml/min BUN/Creatinine Ratio (10-20) Glucose (70-99(Fasting)) mg/dl Calcium (8.5-10.1) mg/dl Magnesium (1.7-2.4) mg/dl Total Bilirubin (0.2-1.0) mg/dl Direct Bilirubin (0-0.2) mg/dl AST (13-39) U/L ALT (7-52) U/L Alkaline Phosphatase (34-104) U/L C-Reactive Protein (0-0.5) mg/dl Total Protein (6.0-8.3) gm/dl Albumin (3.4-5.0) gm/dl Amylase (25-115) U/L Lipase (11-82) U/L Urine Color Yellow Urine Appearance Clear (Clear) Urine pH 8.5 H (4.5-7.5) Ur Specific [place] 1.007 (1.000-1.030) Urine Protein Negative (Negative) Urine Glucose (UA) Negative (Negative) Urine Ketones Trace H (Negative) Urine Blood 3+ H (Negative) Urine Nitrite Negative (Negative) Urine Bilirubin Negative (Negative) Urine Urobilinogen Negative (Negative) Ur Leukocyte Esterase Negative (Negative) Urine WBC (Auto) 1-5 (0-5) /hpf Urine RBC (Auto) 0-4 (0-4) /hpf U Hyaline Cast (Auto) 0 (0-5) /lpf U Epithel Cells (Auto) 10-20 H (0-5) /lpf Urine Bacteria (Auto) Negative (Negative) Urine Test Negative (Negative) Urine Opiates Screen (Neg) Ur Methadone, Qual (Neg) Urine Barbiturates (Neg) Ur Phencyclidine (PCP) (Neg) U Amphetamin/Meth Scrn (Neg) MDMA (Ecstasy) Screen (Neg) U Benzodiazepines Scrn (Neg) Ur Cocaine Metabolite (Neg) U Marijuana (THC) Screen (Neg) SARS-CoV-2, RNA, NAAT NEGATIVE (NEGATIVE) 07/19/21 Range/Units 14:50 WBC (4.8-10.8) K/uL RBC (4.2-5.4) M/uL Hgb (12.0-16.0) g/dL Hct (37-47) % MCV (80-100) fL MCH (25-34) pg MCHC (32-36) g/dL RDW Std Deviation (36.4-46.3) fL RDW Coeff of Laura (11.5-14.5) % Plt Count (130-400) K/uL MPV (7.4-10.4) fL Immature Gran % (Auto) % Neut % (Auto) % Lymph % (Auto) % [place] % (Auto) % Eos % (Auto) % Baso % (Auto) % Neut # (Auto) (1.4-6.5) K/uL Lymph # (Auto) (1.2-3.4) K/uL [place] # (Auto) (0.11-0.59) K/uL Eos # (Auto) (0-0.5) K/uL Baso # (Auto) (0-0.2) K/uL Immature Gran # (Auto) (0.00-0.02) K/uL ESR (0-20) mm/hr Sodium (136-145) mmol/L Potassium (3.5-5.1) mmol/L Chloride (98-107) mmol/L Carbon Dioxide (21-32) mmol/L Anion Gap (3-11) BUN (6-23) mg/dl Creatinine (0.6-1.2) mg/dl Est Cr Clr Drug Dosing ml/min Est GFR ( Amer) ml/min Est GFR (Non-Af Amer) ml/min BUN/Creatinine Ratio (10-20) Glucose (70-99(Fasting)) mg/dl Calcium (8.5-10.1) mg/dl Magnesium (1.7-2.4) mg/dl Total Bilirubin (0.2-1.0) mg/dl Direct Bilirubin (0-0.2) mg/dl AST (13-39) U/L ALT (7-52) U/L Alkaline Phosphatase (34-104) U/L C-Reactive Protein (0-0.5) mg/dl Total Protein (6.0-8.3) gm/dl Albumin (3.4-5.0) gm/dl Amylase (25-115) U/L Lipase (11-82) U/L Urine Color Urine Appearance (Clear) Urine pH (4.5-7.5) Ur Specific [place] (1.000-1.030) Urine Protein (Negative) Urine Glucose (UA) (Negative) Urine Ketones (Negative) Urine Blood (Negative) Urine Nitrite (Negative) Urine Bilirubin (Negative) Urine Urobilinogen (Negative) Ur Leukocyte Esterase (Negative) Urine WBC (Auto) (0-5) /hpf Urine RBC (Auto) (0-4) /hpf U Hyaline Cast (Auto) (0-5) /lpf U Epithel Cells (Auto) (0-5) /lpf Urine Bacteria (Auto) (Negative) Urine Test (Negative) Urine Opiates Screen Neg (Neg) Ur Methadone, Qual Neg (Neg) Urine Barbiturates Neg (Neg) Ur Phencyclidine (PCP) Neg (Neg) U Amphetamin/Meth Scrn Neg (Neg) MDMA (Ecstasy) Screen Neg (Neg) U Benzodiazepines Scrn Neg (Neg) Ur Cocaine Metabolite Neg (Neg) U Marijuana (THC) Screen Neg (Neg) SARS-CoV-2, RNA, NAAT (NEGATIVE) Administered Medications Discontinued Medications Diphenhydramine HCl (Diphenhydramine 50 Mg/Ml Vial) 50 mg IV NOW STA Stop: 07/19/21 13:20 Last Admin: 07/19/21 13:42 Dose: 50 mg Documented by: [id number] Gadobutrol (Gadobutrol 7.5ml Vial) 5.5 ml IV ONCE ONE Stop: 07/19/21 15:56 Last Admin: 07/19/21 15:50 Dose: 5.5 ml Documented by: [id number] Sodium Chloride (Nss 1000ml) 1,000 mls @ 999 mls/hr IV .Q1H1M ONE Stop: 07/19/21 14:19 Last Admin: 07/19/21 13:42 Dose: 999 mls/hr Documented by: [id number] Sodium Chloride (Nss 1000ml) 1,000 mls @ 999 mls/hr IV .Q1H1M ONE Stop: 07/19/21 14:19 Last Admin: 07/19/21 15:35 Dose: 999 mls/hr Documented by: [id number] Prochlorperazine (Compazine) 1 mls @ 1 mls/min IV ONE ONE Stop: 07/19/21 13:20 Last Admin: 07/19/21 13:44 Dose: 1 mls/min Documented by: [id number] Acetaminophen (Ofirmev) 1,000 mg in 100 mls @ 400 mls/hr IV NOW STA Stop: 07/19/21 13:33 Last Admin: 07/19/21 15:34 Dose: Not Given Documented by: [id number] Lorazepam (Ativan) 1 mg in 2 mls @ 2 mls/min IV NOW STA Stop: 07/19/21 13:20 Last Admin: 07/19/21 13:45 Dose: 2 mls/min Documented by: [id number] Discharge Plan Visit Data Chief Complaint: Vomiting Stated Complaint: VOMITING, ED Provider: Arnulfo Mckeon Discharge Problem: Intractable nausea and vomiting Forms Stand Alone Forms: My [facility] Prescriptions Prescriptions: No Action fluoxetine 40 mg capsule 40 mg PO HS RF: 0 drospirenone-ethinyl estradiol [Vestura (28)] 3-0.02 mg tablet 1 tab PO HS RF: 0 lorazepam 0.5 mg tablet 0.5 mg PO Q8H PRN (Reason: Anxiety) RF: 0 calcium carbonate [Tums] 200 mg calcium (500 mg) Tablet,Chewable 200 mg PO BID PRN (Reason: Nausea) RF: 0 prochlorperazine maleate [Compazine] 10 mg tablet 10 mg PO Q8H PRN (Reason: nausea and vomiting) 5 Days Qty: 15 RF: 0 ondansetron 4 mg tablet,disintegrating 4 mg PO Q12H PRN (Reason: nausea and vomiting) 3 Days Qty: 9 RF: 0 Referrals [facility]: [facility] [Primary [facility] Provider[facility] -
[2021-07-19 13:59] LABS: Alanine Aminotransferase 18 U/L (7-52); Albumin Level 4.7 gm/dl (3.4-5.0); Alkaline Phosphatase 33 U/L (34-104); Amylase 40 U/L (25-115); Anion Gap 11 (3-11); Aspartate Aminotransferase 14 U/L (13-39); BUN Creatinine Ratio 8.9 (10-20); Bilirubin Direct 0.1 mg/dl (0-0.2); Bilirubin,Total 0.6 mg/dl (0.2-1.0); Blood Urea Nitrogen 5 mg/dl (6-23); C Reactive Protein < 0.50 mg/dl (0-0.5); Calcium 9.6 mg/dl (8.5-10.1); Carbon Dioxide 25 mmol/L (21-32); Chloride 96 mmol/L (98-107); Creatinine Clr Calc Pharmacy 137.2 ml/min; Est GFR (African American) > 150.0 ml/min; Est GFR (Non-African American) 133.3 ml/min; Glucose 119 mg/dl (70-99(Fasting)); Lipase 9 U/L (11-82); Magnesium 1.7 mg/dl (1.7-2.4); Potassium 3.5 mmol/L (3.5-5.1); Sodium 132 mmol/L (136-145); Total Protein 7.3 gm/dl (6.0-8.3)
--- NOTE | 2021-07-19 15:02 | History & Physical Report ---
Date of Service July 19, 2021 Assessment & Plan (1) Intractable nausea and vomiting: Plan: Due to the patient's presenting symptoms and her numerous visits to the emergency department recently she will be admitted to the hospital we proceed as follows: We will provide IV fluid for hydration We will provide antiemetics Pursue an MRI of the brain to evaluate for central cause of patient's nausea vomiting As the patient's abdominal exam is entirely benign at this time I will defer any abdominal imaging at this time We will request a gastroenterology consultation to see if they feel an EGD is warranted. This patient for this I will make the patient n.p.o. after midnight to see if this can be performed tomorrow. We will allow the patient clear liquids up until midnight tonight At the present time the cause of patient's nausea vomiting has not been as certained. Etiologies such as pancreatitis, cholecystitis are unlikely due to the benign nature patient's abdominal exam. Hopefully pursuing an EGD will be able to help ascertain the cause of her symptoms. We will use SCDs for DVT prevention. Would avoid chemical means for the present time until it is determined patient will undergo endoscopy. The patient be a level 1 full code History of Present Illness Chief Complaint: Intractable nausea vomiting Primary Care Provider: [facility] This a 20-year-old female who is from [place]. 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 Patient presented to the emergency department due to intractable nausea vomiting. Patient's records were reviewed and she has had numerous visits to the emergency department over the past several weeks. She was admitted to [facility] from July 04 through July 05 secondary to nausea vomiting. During this visit she had a KUB that did not show any obstructive pattern and she was discharged home with supportive care. She returned to the emergency department on July 17 of this year again receiving a KUB that did not show any obstructive pattern she was discharged with supportive care. After being discharged from the emergency department on July 17 the patient says that she was doing well for several hours. She was able to tolerate liquids and some solid foods however last evening at approximately 3:00 AM she developed nausea vomiting. She notes that it was approximately 6 to 7 hours after her most recent oral intake that her symptoms began. Patient said that she tried to drink some Gatorade and other liquids to stay hydrated but this was not successful and she continued to have nausea vomiting. Did question the patient on numerous symptoms and she said that her symptoms of nausea vomiting seem to come on randomly. She does add that with her symptomatology she does not have any abdominal pain whatsoever. She did at report one episode of hematemesis in the past but she denies any melanotic stools or bright blood per rectum. She did note that she was seen by gastroenterology at [facility] in February 2019. These records were reviewed and patient was instructed to avoid NSAIDs at this time and was recommended the patient undergo an EGD. Patient notes she is she is also been in the care of gastroenterology in her hometown of [place] and they also recommended patient undergoing an EGD but she said that this was never performed. Patient notes that her symptoms are unrelated to her menstrual cycle and she denies any history of migraines. I also asked the patient if she was under significant mount of stress with school which she denied. Patient says that she has not had an alcoholic beverage in several weeks. She said that she does not use any recreational drugs specifically stating she does not use marijuana. She does note that sometimes if she takes a hot shower that her symptoms do improve but she does not identify any other palliative or provocative factors. She specifically does not note any foods or beverages that contribute to her symptoms. To the best of her knowledge she has no history of lactose intolerance or celiac disease. She also added that she has not had any prior abdominal surgeries. In addition in addition she does not feel that she has had any poorly or undercooked foods suggestive of food poisoning and she also denies any diarrhea. In the emergency department today the patient had labs which I independently reviewed. A CBC revealed white blood cell count, hemoglobin, hematocrit, and platelet count are all within normal range. A chemistry profile showed her sodium was 132. Potassium was noted to be within normal range. Her BUN and creatinine were both low at 5 and 0.5. There is no significant elevation of her LFTs or lipase. COVID test has been performed and is pending. A test has also been ordered and is pending. A toxicology screen has been ordered and is pending. In addition a urinalysis and culture has been ordered which is also pending. At the time of my interview with the patient she had just received some intravenous fluid for hydration and she notes that symptomatically this has alleviated her symptoms somewhat. She was in no distress at the time of my exam. Allergies Allergy/AdvReac Type Severity Reaction Status Date / Time acetaminophen Allergy Intermediate Hives Verified 07/19/21 14:39 NSAIDS (Non-Steroidal Allergy Intermediate Hives Verified 07/19/21 14:39 Anti-Inflamma Home Medications Medication Instructions Recorded Confirmed Type drospirenone 3 mg-ethinyl 1 tab PO HS 07/05/21 07/19/21 History estradiol 0.02 mg tablet (Vestura (28)) fluoxetine 40 mg capsule 40 mg PO HS 07/05/21 07/19/21 History calcium carbonate 200 mg calcium 200 mg PO BID PRN 07/17/21 07/19/21 History (500 mg) chewable tablet (Tums) lorazepam 0.5 mg tablet 0.5 mg PO Q8H PRN 07/17/21 07/19/21 History ondansetron 4 mg disintegrating 4 mg PO Q12H PRN 3 Days #9 tab 07/17/21 07/19/21 Rx tablet prochlorperazine maleate 10 mg 10 mg PO Q8H PRN 5 Days #15 tab 07/17/21 07/19/21 Rx tablet (Compazine) Past Med/Surg History Medical History Anxiety Nausea and vomiting in adult Surgical History No pertinent past surgical history Family History Father Diverticulitis Grandfather (Paternal) Pancreatic cancer Other No significant family history Social History Smoking Status: Never smoker Second Hand Exposure: No; Hx Alcohol Use: Yes Alcohol type: wine Hx Substance Use: No Preferred Language: Tunisian Communication Ability: Effective Healthcare Interpreter Required: No Beliefs That Will Affect Care: None Current Living Situation: Other Current Living Situation Comment: college student current occupational status: student Feels Safe at Home: Yes Assistive Devices: None Review of Systems Constitutional: no fever and no chills Eyes: no diplopia Ear, Nose, Mouth, Throat: no ear pain Respiratory: no cough and no dyspnea Cardiovascular: no chest pain Gastrointestinal: + nausea and + vomiting; no abdominal pain and no diarrhea/loose stools Genitourinary: no dysuria Musculoskeletal: no back pain Integumentary: no rash Neurologic: no localized weakness and no headache(s) Physical Exam Constitutional: well developed and well nourished; no acute distress Eyes: no conjunctival abnormality ENMT: Ears: no hearing impairment Neck: trachea midline Cardiovascular: Rate/Rhythm: regular rate and regular rhythm Gastrointestinal (Abdomen): Patient's abdomen is soft and nondistended. Bowel sounds are present. There is no pain with palpation in any area of her abdomen. There is no rebound tenderness or guarding. Musculoskeletal: No gross orthopedic abnormalities. No calf tenderness Skin: no rashes Neurologic: moves all extremities Psychiatric: A+Ox3, euthymic affect Results & Data Results & Data ([facility]) Vital Signs (Past 12 Hours) Vital Signs Temp Pulse Resp BP Pulse Ox 07/19/21 13:07 36.0 C L 77 16 141/99 H 94 Code Status & VTE Plan VTE Prophylaxis Plan VTE Prophylaxis will be ordered: Yes Supervising Physician Co-Signing Physician Notes Attending Attestation & Admission Note - Pt seen/examined, chart reviewed, care plan d/w MARIAJOSE Oconnell. I agree w/ the maxwell components of his admission documentation. 20yo female - [employer] senior studying communications/poly sciience - presents with intractable N/V in the absence of abdominal pain. She reports too numerous to count episodes of nausea/emesis spells over the last 3 years. No obvious trigger. No specific foods make symptoms come on or worse. Denies personal or family h/o migraine headaches. Denies school-related stress although she mentioned she is contemplating taking the LSAT exam. No family h/o PUD to her knowledge. Denies fevers or cardiopulmonary symptoms. She does have nocturnal symptoms. States she has had no weight loss and her menses are regular. PMH/PSH/allergies/meds/sochx/famhx - reviewed VSS, afebrile gen - mildly pale, but otherwise NAD; pleasant mouth - MM pasty, no lesions heart - RRR, s1 s2, no murmur lungs - CTA b/l abd - soft, NT, ND, BS+, no HSM or peritoneal signs ext - no edema, pulses 2+ b/l skin - no rash labs reviewed ua reviewed (3+ blood, but no RBCs) previous imaging reviewed A/P: Recurrent episodes of severe, intractable nausea/emesis without abdominal pain. Long-standing, present for 3+ years or more. Multiple ER visits for same. LFTs, lipase, KUB x-rays, etc all wnl. Diff dx - PUD vs biliary tract disease vs severe GERD vs gastroparesis vs celiac disease. Non-GI causes including PHOTOGRAPHIC RESTORER cause (brain tumor, etc), ana's disease, cyclic vomiting syndrome ("abdominal migraine") vs other. Plan - IV fluids. Anti-emetics. IV PPI daily. MRI brain - r/o tumor, hydrocephalus, etc. RUQ u/s - r/o biliary tract disease. GI consultation for consideration of EGD. Consider CT a/p if nothing else is found. Consider cortisol level. If w/u is entirely negative then she could have cyclic vomiting syndrome. In that case, given the severity & frequency of spells, consider prophylaxis in addition to abortive Rx. Shalom Meade MD PG Care Time/CCT Total # of Minutes Spent Total Time Spent with Patient: Total time spent is greater than 50% in coordination of care (as documented) at patient's floor/unit and/or counseling patient: Coding Level of Care Code INT OBSERVATION CARE 70M LVL 3 Diagnoses Intractable nausea and vomiting R11.2
[2021-07-19 15:12] LABS: Appearance Urine Clear (Clear); Bacteria Urine Automated Negative (Negative); Bilirubin Urine Negative (Negative); Blood Urine 3+ (Negative); Cast Urine Automated 0 /lpf (0-5); Color Urine Yellow; Glucose Urine UA Negative (Negative); Ketones Urine Trace (Negative); Leukocyte Esterase Urine Negative (Negative); Nitrite Urine Negative (Negative); Protein Urine Negative (Negative); RBC Urine Automated 0-4 /hpf (0-4); Specific Gravity Urine 1.007 (1.000-1.030); Urobilinogen Urine Negative (Negative); pH Urine 8.5 (4.5-7.5)
[2021-07-19 15:13] LABS: Pregnancy Test, Urine Negative (Negative)
[2021-07-19 15:32] LABS: Amphetamines+Metham, Urine Neg (Neg); Barbiturates, Urine Neg (Neg); Benzodiazepine, Urine Neg (Neg); Cocaine, Urine Neg (Neg); MDMA (Ecstacy), Urine Neg (Neg); Methadone, Urine Neg (Neg); Opiate, Urine Neg (Neg); Phencyclidine, Urine Neg (Neg)
[2021-07-19] MEDS ORDERED: GADOBUTROL 7.5ML VIAL IV ONE (15:55)
--- NOTE | 2021-07-19 17:25 | Ultrasound Report ---
US gallbladder LIMITED ABDOMEN CLINICAL HISTORY: recurrent episodes of emesis; eval biliary disease. COMPARISON: None. TECHNIQUE: Multiple grayscale and color images of the right upper quadrant of the abdomen. FINDINGS: Pancreas: The pancreas is within normal limits with no focal mass or peripancreatic fluid collection identified. Liver: The liver is homogeneous in echogenicity There is no evidence for a focal mass. There is no in trahepatic biliary duct dilatation. Gallbladder: The gallbladder is well distended with no evidence of cholelithiasis, wall thickening o r pericholecystic edema. There is sludge seen within the gallbladder. There was reportedly a negative sonographic Lopez sign. Common Bile Duct: (CBD): It is normal in size measuring 5 mm. Inferior Vena Cava (IVC): The imaged IVC is patent. Right kidney: There is no evidence for hydronephrosis, calculus or gross renal mass. The kidney is n ormal in size. IMPRESSION: Sludge within the gallbladder with no cholelithiasis or ultrasound evidence for acute ch olecystitis. ACT 112: Negative or not required by law. Electronically signed by: Johnny Ponce M.D. 07/19/2021 5:24 PM
--- NOTE | 2021-07-19 18:01 | Magnetic Resonance Report ---
MR brain wo/w con CLINICAL HISTORY: Nausea and vomiting. Recent head trauma.. COMPARISON STUDY: No previous studies for comparison. TECHNIQUE: Multiplanar multisequence images of the brain were performed before and after Gadavist, 5 .5 mL of IV contrast. Diffusion weighted imaging and ADC mapping was also performed. FINDINGS: Extra-axial space: There is no evidence for a subdural hematoma, There are no extra-axial fluid praveen ections. Ventricles and cisterns: The ventricles are normal in size and configuration. There is no evidence f or midline shift or mass effect. Parenchyma: On noncontrast images, there is no evidence for an acute hemorrhage or infarct. No acute diffusion abnormalities are noted on diffusion weighted imaging or ADC mapping. There is normal underwood -white differentiation. The sulci and gyri appear normal without effacement. The midline structures a re unremarkable. The posterior fossa structures appear normal. On postcontrast images, there is no evidence for enhancing mass lesion. Osseous structures: The paranasal sinuses are well aerated. The mastoid air cells are well aerated. Soft tissues: No focal soft tissue abnormalities are identified. IMPRESSION: No acute intracranial abnormalities. ACT 112: Negative or not required by law. Electronically signed by: Johnny Ponce M.D. 07/19/2021 6:00 PM
[2021-07-19] MEDS ORDERED: CALCIUM CARBONATE 500 MG CHEWABLE TAB PO PRN (18:35)
[2021-07-19] MEDS ORDERED: ONDANSETRON INJ 2 MG/ML 2 ML VIAL IV PRN (18:35)
[2021-07-19] MEDS ORDERED: LORazepam 0.5 MG TAB PO PRN (18:35)
[2021-07-19] MEDS ORDERED: PANTOprazole 40 MG in SYRINGE 0 ML IV ONE (18:45)
[2021-07-19] MEDS: LACTATED RINGER'S 1,000 ML IV SCH (19:47)
[2021-07-19] MEDS ORDERED: FLUoxetine HCL 20 MG CAP PO SCH (21:00)
[2021-07-20] MEDS: LACTATED RINGER'S 1,000 ML IV SCH (05:44)
[2021-07-20 06:43] LABS: Eosinophils # (auto) 0.05 K/uL (0-0.5); Eosinophils % (auto) 0.8 %; Hematocrit (blood only) 33.3 % (37-47); Hemoglobin 11.3 g/dL (12.0-16.0); Immature Granulocytes # (auto) 0.01 K/uL (0.00-0.02); Immature Granulocytes % (auto) 0.2 %; Lymphocytes # (auto) 3.01 K/uL (1.2-3.4); Lymphocytes % (auto) 48.8 %; Mean Corpuscular Hemoglobin 30.1 pg (25-34); Mean Corpuscular Hgb Conc 33.9 g/dL (32-36); Mean Corpuscular Volume 88.8 fL (80-100); Mean Platelet Volume 10.9 fL (7.4-10.4); Monocytes # (auto) 0.74 K/uL (0.11-0.59); Neutrophils # (auto) 2.36 K/uL (1.4-6.5); Neutrophils % (auto) 38.2 %; Platelet Count 175 K/uL (130-400); RDW Standard Deviation 39.1 fL (36.4-46.3); Red Blood Count 3.75 M/uL (4.2-5.4); White Blood Count 6.17 K/uL (4.8-10.8)
--- NOTE | 2021-07-20 09:53 | Gastrointestinal Consultation ---
Date of Consultation July 20, 2021 Assessment & Plan (1) Nausea & vomiting: -Keep NPO for EGD today -Protonix 40 mg BID -Zofran 8 mg q 6 hr prn -Pending results, will need outpatient follow-up with Payal GUILLERMO as well as consideration of GES & HIDA scan. Supervising Physician Co-Signing Physician Notes Agree with DAISY Barrientos as above Abd: Soft, NT, ND, +BS Continue current therapy and supportive care Proceed with EGD now History of Present Illness Reason for Consultation: Nausea & vomiting Attending Physician: Lon Beasley MD History of Present Illness Patient is a 20 yo female with a PMH of intermittent n/v episodes. 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 Over the past week, she developed intractable nausea and vomiting and presented to the ED several times. She notes that the more she had n/v, the more dehydrated she felt, which made her feel like she needed to return to the ED. She was seen by Payal GUILLERMO in the past for the same symptoms. She was to have an EGD per Payal's recommendations and the recommendations by her records management analyst in [place], but she has not done this. She notes these cycles appear random to her and she is unable to break the cycle with oral antiemetic therapy. Patient denies marijuana use, migraines, or association with her menstrual cycles. She denies contaminated food intake or sick contacts. COVID negative, negative, tox screen negative. She denies pertinent family history from a GI standpoint. Sodium 132. K 3.5. BUN/Cr 5/0.56. Nausea & vomiting is resolved at present. She has been receiving IV antiemetics. Allergies Allergy/AdvReac Type Severity Reaction Status Date / Time acetaminophen Allergy Intermediate Hives Verified 07/20/21 13:46 NSAIDS (Non-Steroidal Allergy Intermediate Hives Verified 07/20/21 13:46 Anti-Inflamma Home Medications Medication Instructions Recorded Confirmed Type drospirenone 3 mg-ethinyl 1 tab PO HS 07/05/21 07/19/21 History estradiol 0.02 mg tablet (Vestura (28)) fluoxetine 40 mg capsule 40 mg PO HS 07/05/21 07/19/21 History calcium carbonate 200 mg calcium 200 mg PO BID PRN 07/17/21 07/19/21 History (500 mg) chewable tablet (Tums) lorazepam 0.5 mg tablet 0.5 mg PO Q8H PRN 07/17/21 07/19/21 History ondansetron 4 mg disintegrating 4 mg PO Q12H PRN 3 Days #9 tab 07/17/21 07/19/21 Rx tablet prochlorperazine maleate 10 mg 10 mg PO Q8H PRN 5 Days #15 tab 07/17/21 07/19/21 Rx tablet (Compazine) Patient History Medical History Anxiety Nausea and vomiting in adult Surgical History No pertinent past surgical history Family History Father Diverticulitis Grandfather (Paternal) Pancreatic cancer Other No significant family history Social History Smoking Status: Never smoker Second Hand Exposure: No; Hx Alcohol Use: Yes Alcohol type: wine Hx Substance Use: No Preferred Language: Czech Communication Ability: Effective Voip Network Engineer Required: No Beliefs That Will Affect Care: None Current Living Situation: Other Current Living Situation Comment: college student current occupational status: student Feels Safe at Home: Yes Assistive Devices: None Review of Systems Constitutional: no fever and no chills Respiratory: no cough and no dyspnea Cardiovascular: no chest pain Gastrointestinal: no abdominal pain, no early satiety, no nausea and no vomiting Neurologic: no dizziness Psychiatric: no problem reported Hematologic / Lymphatic: no problem reported Physical Exam Constitutional: well developed Respiratory: normal respiratory effort Cardiovascular: Rate/Rhythm: regular rate Gastrointestinal (Abdomen): Inspection/Auscultation: abdomen normal to inspection Musculoskeletal: Head/Neck/Chest: normocephalic Skin: no jaundice Psychiatric: Orientation: alert and oriented x 3 Results & Data ([facility]) Vital Signs (Past 12 Hours) Vital Signs Temp Pulse Resp BP Pulse Ox 07/20/21 07:29 37 C 49 L 16 119/74 95 07/19/21 23:24 37.0 C 89 15 114/78 97 PG Care Time/CCT Total # of Minutes Spent Total Time Spent with Patient: Total time spent is greater than 50% in coordination of care (as documented) at patient's floor/unit and/or counseling patient: Coding Level of Care Code 02326 Inpt Consult Level 4 Diagnoses Nausea & vomiting R11.2 Vomiting type: unspecified (1) Nausea & vomiting Vomiting type: unspecified Qualified Code(s): R11.2 - Nausea with vomiting, unspecified
[2021-07-20] MEDS ORDERED: PANTOprazole 40 MG in SYRINGE 0 ML IV SCH (11:00)
--- NOTE | 2021-07-20 14:30 | Anesthesiology Consultation ---
Date of Service July 20, 2021 Assessment & Plan (1) Encounter for pre-operative examination: Chart Review Chart Review: Acceptable Risk for Surgery and Patient NOT seen in Pre Admission Testing Consults Requested none Proposed Anesthesia Risk / Benefits Reviewed With: PT / POA / Parent / Guardian, Accepts Plan and Informed Consent Obtained History Surgery Operation Date: 07/20/21 16:00 Proposed Procedures p Esophagogastroduodenoscopy Dr Edin Denis Case, DO Height/Weight Height: 5 ft 4 in Weight: 55.7 kg Allergies Allergy/AdvReac Type Severity Reaction Status Date / Time acetaminophen Allergy Intermediate Hives Verified 07/20/21 13:46 NSAIDS (Non-Steroidal Allergy Intermediate Hives Verified 07/20/21 13:46 Anti-Inflamma Medications Home Medications Medication Instructions Recorded Confirmed Last Taken drospirenone 3 mg-ethinyl 1 tab PO HS 07/05/21 07/19/21 07/16/21 estradiol 0.02 mg tablet (Vestura (28)) fluoxetine 40 mg capsule 40 mg PO HS 07/05/21 07/19/21 07/16/21 calcium carbonate 200 mg calcium 200 mg PO BID PRN 07/17/21 07/19/21 07/17/21 (500 mg) chewable tablet (Tums) 4 tabs lorazepam 0.5 mg tablet 0.5 mg PO Q8H PRN 07/17/21 07/19/21 07/17/21 07:00 0.5mg ondansetron 4 mg disintegrating 4 mg PO Q12H PRN 3 Days #9 tab 07/17/21 07/19/21 Unknown tablet prochlorperazine maleate 10 mg 10 mg PO Q8H PRN 5 Days #15 tab 07/17/21 07/19/21 Unknown tablet (Compazine) Active Medications Generic Name Dose Route Start Last Admin Trade Name Freq PRN Reason Stop Dose Admin Fluoxetine HCl 40 mg 07/19/21 21:00 07/19/21 19:48 Fluoxetine Hcl 20 Mg Cap PO 08/18/21 20:59 40 mg HS NICOLASA Administration Lactated Ringer's 1,000 mls @ 100 mls/hr 07/19/21 18:45 07/20/21 14:25 Lr IV 08/18/21 18:44 0 mls/hr .Q10H NICOLASA Infusion Pantoprazole Sodium 40 mg/ 10 mls @ 5 mls/min 07/20/21 11:00 07/20/21 11:15 Syringe IV 08/19/21 10:59 5 mls/min DAILY@1100 [facility] Administration Miscellaneous 1 ea 07/20/21 00:00 07/20/21 06:59 * Control*Order Awaiting Action N/A 08/19/21 00:00 Not Given QS NICOLASA NPO Date Last Intake of Fluids: 07/19/21 Time Last Intake of Fluids: 19:00 Date Last Intake of Solids: 07/19/21 Time Last Intake of Solids: 18:00 Past Medical History Medical History (Updated 07/20/21 @ 14:38 by Minda Bae MD) Anxiety Hypokalemia Hyponatremia Intractable nausea and vomiting Nausea and vomiting in adult Exercise / Class Metabolic Activity II 4-5 Yardwork/Stairs/Walk up hill Past Family History Family History Father Diverticulitis Grandfather (Paternal) Pancreatic cancer Other No significant family history Past Surgical History Surgical History No pertinent past surgical history Past Anesthesia History No Hx of Anesthesia Complications History of PONV No Hx of PONV and No Hx of Motion Sickness Social History Smoking Status: Never smoker Hx Alcohol Use: Yes Alcohol type: wine alcohol intake frequency: a few times a week Hx Substance Use: No Physical Exam Vital Signs Last Vital Signs Temp 36.5 C 07/20/21 13:47 Pulse 60 07/20/21 13:47 Resp 14 07/20/21 13:47 BP 134/90 07/20/21 13:47 Pulse Ox 95 07/20/21 13:47 ENMT Mouth: no dentition abnormality Thyromental Distance: > or= 3.5 Finger Breadths Mallampati Class: II Neck normal visual inspection Respiratory normal respiratory effort Auscultation: lungs clear to auscultation bilaterally Cardiovascular Rate/Rhythm: regular rate and regular rhythm Psychiatric Orientation: alert and oriented x 3 Testing Laboratory Results 07/20/21 05:55 07/19/21 13:30 Urine Color Yellow 07/19/21 14:50 Urine Appearance Clear (Clear) 07/19/21 14:50 Urine pH 8.5 (4.5-7.5) H 07/19/21 14:50 Ur Specific [place] 1.007 (1.000-1.030) 07/19/21 14:50 Urine Protein Negative (Negative) 07/19/21 14:50 Urine Glucose (UA) Negative (Negative) 07/19/21 14:50 Urine Ketones Trace (Negative) H 07/19/21 14:50 Urine Nitrite Negative (Negative) 07/19/21 14:50 Ur Leukocyte Esterase Negative (Negative) 07/19/21 14:50 Urine WBC (Auto) 1-5 /hpf (0-5) 07/19/21 14:50 Urine RBC (Auto) 0-4 /hpf (0-4) 07/19/21 14:50 U Hyaline Cast (Auto) 0 /lpf (0-5) 07/19/21 14:50 U Epithel Cells (Auto) 10-20 /lpf (0-5) H 07/19/21 14:50 Urine Bacteria (Auto) Negative (Negative) 07/19/21 14:50 Urine Test Negative (Negative) 07/19/21 14:50 07/19/21 14:50 Urine Test Negative
[2021-07-20] MEDS ORDERED: PROPOFOL IV EMULSION 10 MG/ML 20 ML VIAL IV ONE (14:39)
[2021-07-20] MEDS ORDERED: fentaNYL citrate 100 MCG/2 ML VIAL ONE (14:39)
--- NOTE | 2021-07-20 15:22 | GI REPORT ---
Patient Name: Mandy Berger Procedure Date: 07/20/2021 2:20 PM Date of : 2000 Admit Type: Inpatient Age: 20 Gender: Female Attending MD: Lloyd Jesus DO Procedure: Upper GI endoscopy Providers: Lloyd Jesus DO Referring MD: Shalom Meade Indications: Nausea with vomiting Medicines: Monitored Anesthesia Care Complications: No immediate complications. Estimated Blood Loss: Estimated blood loss: none. Procedure: Pre-Anesthesia Assessment: - Prior to the procedure, a History and Physical was performed, and patient medications and allergies were reviewed. The patient's tolerance of previous anesthesia was also reviewed. The risks and benefits of the procedure and the sedation options and risks were discussed with the patient. All questions were answered, and informed consent was obtained. Prior Anticoagulants: The patient has taken no previous anticoagulant or antiplatelet agents. ASA Grade Assessment: II - A patient with mild systemic disease. After reviewing the risks and benefits, the patient was deemed in satisfactory condition to undergo the procedure. After obtaining informed consent, the endoscope was passed under direct vision. Throughout the procedure, the patient's blood pressure, pulse, and oxygen saturations were monitored continuously. The Endoscope was introduced through the mouth, and advanced to the second part of duodenum. The upper GI endoscopy was accomplished without difficulty. The patient tolerated the procedure well. Findings: Moderately severe esophagitis with no bleeding was found 36 to 38 cm from the incisors. Biopsies were taken with a cold forceps for histology. Localized mild inflammation characterized by erythema was found in the gastric antrum. Biopsies were taken with a cold forceps for histology. The examined duodenum was normal. Impression: - Moderately severe reflux esophagitis. Biopsied. - Gastritis. Biopsied. - Normal examined duodenum. Recommendation: - [facility]. - Advance diet as tolerated. - Use Protonix (pantoprazole) 40 mg PO daily. - Await pathology results. Lloyd Jesus DO 07/20/2021 3:22:36 PM This report has been signed electronically. Note Initiated On: 07/20/2021 2:20 PM Number of Addenda: 0 I attest to the content of the Intraoperative Record and orders documented therein, exceptions below {[id number]}
[2021-07-20] MEDS ORDERED: PANTOprazole 40 MG TAB PO SCH (15:30)
--- NOTE | 2021-07-20 15:32 | Anesthesiology Progress Note ---
Date of Service July 20, 2021 Anesthesia Post Procedure Vital Signs Vital Signs: Temp Pulse Resp BP Pulse Ox 07/20/21 15:24 36.3 C L 54 L 16 124/78 99 07/20/21 13:47 36.5 C 60 14 134/90 95 07/20/21 07:29 37 C 49 L 16 119/74 95 07/19/21 23:24 37.0 C 89 15 114/78 97 07/19/21 18:20 37.7 C H 57 L 16 118/85 99 07/19/21 16:00 72 18 124/74 99 Transfer of Care Handoff Completed per policy Notes Mental Status: alert / awake / arousable Patient Amnestic to Procedure: Yes Nausea / Vomiting: adequately controlled Pain: adequately controlled Airway Patency, RR, SpO2: stable & adequate BP & HR: stable & adequate Hydration State: stable & adequate Anesthetic Complications: no major complications apparent and Pt Satisfied with anesthetic care
[2021-07-20 16:50] LABS: BUN Creatinine Ratio 7.8 (10-20); Calcium 9.1 mg/dl (8.5-10.1); Creatinine Clr Calc Pharmacy 120.1 ml/min; Est GFR (African American) 147.8 ml/min; Est GFR (Non-African American) 127.6 ml/min; Potassium 3.8 mmol/L (3.5-5.1)
--- NOTE | 2021-07-20 17:15 | Discharge Summary ---
Date of Service July 20, 2021 Admission HPI Per Admitting Provider This a 20-year-old female who is from [place]. 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 Patient presented to the emergency department due to intractable nausea vomiting. Patient's records were reviewed and she has had numerous visits to the emergency department over the past several weeks. She was admitted to [facility] from July 04 through July 05 secondary to nausea vomiting. During this visit she had a KUB that did not show any obstructive pattern and she was discharged home with supportive care. She returned to the emergency department on July 17 of this year again receiving a KUB that did not show any obstructive pattern she was discharged with supportive care. After being discharged from the emergency department on July 17 the patient says that she was doing well for several hours. She was able to tolerate liquids and some solid foods however last evening at approximately 3:00 AM she developed nausea vomiting. She notes that it was approximately 6 to 7 hours after her most recent oral intake that her symptoms began. Patient said that she tried to drink some Gatorade and other liquids to stay hydrated but this was not successful and she continued to have nausea vomiting. Did question the patient on numerous symptoms and she said that her symptoms of nausea vomiting seem to come on randomly. She does add that with her symptomatology she does not have any abdominal pain whatsoever. She did at report one episode of hematemesis in the past but she denies any melanotic stools or bright blood per rectum. She did note that she was seen by gastroenterology at [facility] in February 2019. These records were reviewed and patient was instructed to avoid NSAIDs at this time and was recommended the patient undergo an EGD. Patient notes she is she is also been in the care of gastroenterology in her hometown of [place] and they also recommended patient undergoing an EGD but she said that this was never performed. Patient notes that her symptoms are unrelated to her menstrual cycle and she denies any history of migraines. I also asked the patient if she was under significant mount of stress with school which she denied. Patient says that she has not had an alcoholic beverage in several weeks. She said that she does not use any recreational drugs specifically stating she does not use marijuana. She does note that sometimes if she takes a hot shower that her symptoms do improve but she does not identify any other palliative or provocative factors. She specifically does not note any foods or beverages that contribute to her symptoms. To the best of her knowledge she has no history of lactose intolerance or celiac disease. She also added that she has not had any prior abdominal surgeries. In addition in addition she does not feel that she has had any poorly or undercooked foods suggestive of food poisoning and she also denies any diarrhea. In the emergency department today the patient had labs which I independently reviewed. A CBC revealed white blood cell count, hemoglobin, hematocrit, and platelet count are all within normal range. A chemistry profile showed her sodium was 132. Potassium was noted to be within normal range. Her BUN and creatinine were both low at 5 and 0.5. There is no significant elevation of her LFTs or lipase. COVID test has been performed and is pending. A test has also been ordered and is pending. A toxicology screen has been ordered and is pending. In addition a urinalysis and culture has been ordered which is also pending. At the time of my interview with the patient she had just received some intravenous fluid for hydration and she notes that symptomatically this has alleviated her symptoms somewhat. She was in no distress at the time of my exam. Principal Diagnosis 1. Esophagitis and Gastritis 2. Intractable N/V Discharge Exam GENERAL: 20 yo well-developed, well-nourished WF. NAD. LUNGS: Clear to auscultation bilaterally. No accessory muscle use. No W/R/R. CARDIOVASCULAR: Regular rate and rhythm. No M/G/R. No JVD. ABDOMEN: Soft, non-tender and non-distended. BS normal x 4 quad. EXTREMITIES: No edema. Non-tender. Peripheral pulses +2/4. NEUROLOGIC: A&O x3. PSYCHIATRIC: Cooperative. Appropriate mood and affect. SKIN: Warm, dry, intact. No rashes or lesions. Discharge Data Allergies Allergy/AdvReac Type Severity Reaction Status Date / Time acetaminophen Allergy Intermediate Hives Verified 07/20/21 13:46 NSAIDS (Non-Steroidal Allergy Intermediate Hives Verified 07/20/21 13:46 Anti-Inflamma Consultations 07/19/21 14:36 ED Decision to Admit Stat 07/19/21 18:35 Consult Gastroenterology Routine Seen by Rufino Mejia PA-C and taken for EGD by Dr. Jesus on 07/20/21 Procedures Performed Operation Date: 07/20/21 16:00 Actual Procedures p EGD Biopsy Cytology - Lloyd Denis Case, DO Ordered Studies Brain MRI 07/19/21 15:02 MR brain wo/w con CLINICAL HISTORY: Nausea and vomiting. Recent head trauma.. COMPARISON STUDY: No previous studies for comparison. TECHNIQUE: Multiplanar multisequence images of the brain were performed before and after Gadavist, 5.5 mL of IV contrast. Diffusion weighted imaging and ADC mapping was also performed. FINDINGS: Extra-axial space: There is no evidence for a subdural hematoma, There are no extra-axial fluid collections. Ventricles and cisterns: The ventricles are normal in size and configuration. There is no evidence for midline shift or mass effect. Parenchyma: On noncontrast images, there is no evidence for an acute hemorrhage or infarct. No acute diffusion abnormalities are noted on diffusion weighted imaging or ADC mapping. There is normal underwood-white differentiation. The sulci and gyri appear normal without effacement. The midline structures are unremarkable. The posterior fossa structures appear normal. On postcontrast images, there is no evidence for enhancing mass lesion. Osseous structures: The paranasal sinuses are well aerated. The mastoid air cells are well aerated. Soft tissues: No focal soft tissue abnormalities are identified. IMPRESSION: No acute intracranial abnormalities. ACT 112: Negative or not required by law. Electronically signed by: Johnny Ponce M.D. 07/19/2021 6:00 PM Gallbladder Ultrasound 07/19/21 15:34 US gallbladder LIMITED ABDOMEN CLINICAL HISTORY: recurrent episodes of emesis; eval biliary disease. COMPARISON: None. TECHNIQUE: Multiple grayscale and color images of the right upper quadrant of the abdomen. FINDINGS: Pancreas: The pancreas is within normal limits with no focal mass or peripancreatic fluid collection identified. Liver: The liver is homogeneous in echogenicity There is no evidence for a focal mass. There is no intrahepatic biliary duct dilatation. Gallbladder: The gallbladder is well distended with no evidence of cholelithiasis, wall thickening or pericholecystic edema. There is sludge seen within the gallbladder. There was reportedly a negative sonographic Lopez sign. Common Bile Duct: (CBD): It is normal in size measuring 5 mm. Inferior Vena Cava (IVC): The imaged IVC is patent. Right kidney: There is no evidence for hydronephrosis, calculus or gross renal mass. The kidney is normal in size. IMPRESSION: Sludge within the gallbladder with no cholelithiasis or ultrasound evidence for acute cholecystitis. ACT 112: Negative or not required by law. Electronically signed by: Johnny Ponce M.D. 07/19/2021 5:24 PM Hospital Course (1) Intractable nausea and vomiting: Due to the patient's presenting symptoms and her numerous visits to the emergency department recently she will be admitted to the hospital we proceed as follows: Placed in obs Provided IV fluid hydration, antiemetics, and IV PPI therapy MRI obtained to r/o central cause of patient's nausea vomiting--which was negat eva As the patient's abdominal exam is entirely benign at this time, no further abdominal imaging ordered Clear liquids ordered GI consulted, appreciate recommendations, seen this morning by AYLEEN and taken for EGD this afternoon NPO after MN (2) Esophagitis: Needs to adjust her diet, avoid alcohol, coffee, citrus fruits/juices, chocolate, spicy foods, and sauces Protonix 40mg daily, rx sent Outpatient f/u with GI in 2-4 weeks Advance diet as tolerated Medically stable for discharge. All questions answered. Mother present while updated on above. Plan for d/c home today on PPI. F/U as outpatient GI. Above plan of care d/w Dr. Beasley who has also seen and evaluated this patient prior to d/c and is in agreement with the above. Total Time Total Time Spent Total Time Spent (In Minutes): <30 minutes Discharge Plan Discharge Items Patient Disposition: Home - Self-Care Reason For Visit: n/v Discharge Diagnosis: inflamed esophagus and stomach Activity: Resume your previous activity Non-emergency contact: Primary Care Provider and [employer] Call non-emergency contact if: you have any medication questions and your symptoms worsen Follow-up/Referrals: Lloyd Jesus DO [Physician] - (2-4 weeks) [facility] [Primary Care Provider] - Diet: Regular and Other - See Diet Comment Diet Comment: GERD Addtl Attending Provider Instructions: You are hospitalized due to intractable nausea and vomiting Throughout hospitalization, you are provided with IV fluids as well as antinausea medications. In addition, you were given a medication to your IV called Protonix which helps to suppress gastric acid production. The EGD the that you had done today with Dr. Jesus demonstrated severe inflammation in your esophagus and stomach likely due to increased gastric acid which is refluxing up into the esophagus. In addition, vomiting will make this worse. At this time, it is recommended that you start daily Protonix 40 mg. You shou ld take this medication first thing in the morning when you get up prior to eating or drinking. You can continue taking your prescribed antinausea medications as needed. Would strongly advise dietary changes to avoid excessive amounts of alcohol, coffee, citrus fruits, sauces, chocolate, and spicy foods. Biopsies were taken during your procedure today, you will follow up with gastroenterology to review the results. We would recommend a follow-up with GI within 2-4 weeks. Recommend follow-up with your primary care physician within 1 to 2 weeks. Pending Studies at Discharge: No Stand-Alone Forms: My [facility] [address], Smoking Cessation Medications and DC Order Prescriptions: New pantoprazole [Protonix] 40 mg tablet,delayed release (DR/EC) 40 mg PO DAILY Qty: 30 RF: 0 Continued fluoxetine 40 mg capsule 40 mg PO HS RF: 0 drospirenone-ethinyl estradiol [Vestura (28)] 3-0.02 mg tablet 1 tab PO HS RF: 0 lorazepam 0.5 mg tablet 0.5 mg PO Q8H PRN (Reason: Anxiety) RF: 0 calcium carbonate [Tums] 200 mg calcium (500 mg) Tablet,Chewable 200 mg PO BID PRN (Reason: Nausea) RF: 0 prochlorperazine maleate [Compazine] 10 mg tablet 10 mg PO Q8H PRN (Reason: nausea and vomiting) 5 Days Qty: 15 RF: 0 ondansetron 4 mg tablet,disintegrating 4 mg PO Q12H PRN (Reason: nausea and vomiting) 3 Days Qty: 9 RF: 0 Discharge Orders: Discharge Order (Routine); Ordered 07/20/21 Ordered By: Olinda Fenton Admission Data Admit Date/Time: 07/19/21 14:52 Attending Provider: Lon Beasley Admit Provider: Shalom Meade Primary Care Provider: [facility] Other Providers: Shalom Meade ; Jairon Perry Other Interventions: Discharge Summary Assessment (RN) Last Done: 07/20/21 15:27 Coding Level of Care Code 37276 OBS Care - Discharge Diagnoses Intractable nausea and vomiting R11.2 Esophagitis K20.90
== END 2021-07-20 17:54 | disposition home or self-care (01) ==
LOC: 3E 13:04 → ED 13:04 → SUATTDRO 14:52 → 3E 16:52